=== PATIENT | male | born 1970 | race Caucasian/White ===

== ENCOUNTER → 2017-05-19 09:26 | Outpatient (REF) | payer MEDICARE, MEDICAID, SELFPAY ==
[2017-05-19 14:51] LABS: Alanine Aminotransferase 23 U/L (12-78); Albumin Level 3.7 gm/dL (3.4-5.0); Albumin/Globulin Ratio 1.1 (1.1-1.8); Alkaline Phosphatase 149 U/L (46-116); Anion Gap 10.7 mEq/L (5-15); Aspartate Amino Transferase 14 U/L (15-37); Bilirubin,Total 0.3 mg/dL (0.2-1.0); Blood Urea Nitrogen 13 mg/dL (7-18); Calcium 9.2 mg/dL (8.5-10.1); Carbon Dioxide 31 mmol/L (21.0-32.0); Chloride 101 mmol/L (98-107); Creatinine,Serum 0.91 mg/dL (0.70-1.30); Estimated Glomerular Filt Rate 90 ml/min (>60); GFR (African American) 109 ML/MIN (>60); Globulin 3.4 gm/dl (1.3-3.2); Glucose 254 mg/dL (74-106); Potassium 4.7 mmoL/L (3.5-5.1); Sodium 138 mmol/L (136-145); Total Protein,Serum 7.1 gm/dL (6.4-8.2)
[2017-05-19 14:54] LABS: Amphetamine/Metha Screen,Urine Negative ng/mL (<1000); Barbiturates Screen,Urine Negative ng/mL (<200); Benzodiazepines Screen,Urine Negative ng/mL (200); Cannabinoid Screen,Urine Negative ng/mL (<50); Cocaine Screen,Urine Negative ng/g (<300); Methadone Screen,Urine Negative ng/mL (<300); Opiate Screen,Urine Positive ng/mL (<300); Phencyclidine Screen,Urine Negative ng/mL (<25)
[2017-05-19 14:56] LABS: Basophils # 0.1 K/mm3 (0-0.2); Eosinophils # 0.3 K/mm3 (0.0-0.4); Eosinophils % 3.5 % (0.1-12.0); Hematocrit 49.5 % (42.0-52.0); Hemoglobin 16.7 g/dL (14.1-18.0); Lymphocytes # 2.5 K/mm3 (0.7-4.5); Lymphocytes % 26.9 K/mm3 (10-50); Mean Corpuscular HGB Conc 33.7 g/dL (31.8-35.4); Mean Corpuscular Hemoglobin 28.3 pg (27.0-31.2); Mean Platelet Volume 8.5 fl (7.4-10.4); Monocytes # 0.6 K/mm3 (0.1-1.0); Monocytes % 6.1 % (1.7-9.3); Neutrophils # 5.9 K/mm3 (1.8-7.8); Neutrophils % 62.6 % (37.0-80.0); Platelet Count 257 K/mm3 (142-424); Red Blood Count 5.89 M/mm3 (4.60-6.20); Red Cell Distribution Width 14.8 % (11.5-17.5); White Blood Count 9.4 K/mm3 (4.8-10.8)
[2017-05-19 17:00] LABS: Hemoglobin A1C 7.9 % (0.0-7.0)
== END ==
LOC: LAB 09:26
PROVIDERS: Visit Provider Emergency Medicine
DX: Z79.899 Other long term (current) drug therapy (principal); M51.36 Other intervertebral disc degeneration, lumbar region
CPT/HCPCS: 80053; 80305; 83036; 85025

== ENCOUNTER → 2017-06-16 13:23 | Outpatient (CLI) | payer MEDICARE, MEDICAID, SELFPAY ==
[2017-06-16 19:25] LABS: Amphetamine/Metha Screen,Urine Negative ng/mL (<1000); Barbiturates Screen,Urine Negative ng/mL (<200); Benzodiazepines Screen,Urine Negative ng/mL (200); Cannabinoid Screen,Urine Negative ng/mL (<50); Cocaine Screen,Urine Negative ng/g (<300); Methadone Screen,Urine Negative ng/mL (<300); Opiate Screen,Urine Positive ng/mL (<300); Phencyclidine Screen,Urine Negative ng/mL (<25)
== END ==
PROVIDERS: Visit Provider Emergency Medicine
DX: Z79.899 Other long term (current) drug therapy (principal)
CPT/HCPCS: 80305

== ENCOUNTER → 2017-09-11 13:42 | Outpatient (CLI) | payer MEDICARE, MEDICAID, SELFPAY ==
--- NOTE | 2017-09-11 13:49 | XR_ITS ---
XR shoulder RT min 2V HISTORY: ITS.REASON: right shoulder pain ORDERING PHYSICIAN: Yaw Frazier MD PATIENT AGE: 47 years FINDINGS: There are moderate hypertrophic changes of the acromioclavicular joint with bone spurs projecting ventrally superior at the AC joint. Minimal osteoarthritic changes are present at the glenohumeral joint. No fracture or dislocation. No significant subacromial stenosis. IMPRESSION: Acromioclavicular arthropathy and mild glenohumeral arthropathy
== END ==
PROVIDERS: PCP Emergency Medicine; Visit Provider Orthopaedic Surgery
DX: M25.511 Pain in right shoulder (principal)
CPT/HCPCS: 73030

== ENCOUNTER 2017-09-20 08:29 | Outpatient (RCR) | payer MEDICARE, MEDICAID, SELFPAY | END 2017-09-20 08:30 | disposition home or self-care (01) | LOC: PT 08:29 | PROVIDERS: Family Provider Emergency Medicine; PCP Emergency Medicine; Visit Provider Orthopaedic Surgery | DX: M75.41 Impingement syndrome of right shoulder (principal) | CPT/HCPCS: 97163 ==

== ENCOUNTER → 2017-09-26 19:59 | Outpatient (CLI) | payer MEDICARE, MEDICAID, SELFPAY | PROVIDERS: PCP Emergency Medicine; Visit Provider Emergency Medicine | DX: G47.30 Sleep apnea, unspecified (principal); R40.0 Somnolence; I10 Essential (primary) hypertension; E66.9 Obesity, unspecified; R06.83 Snoring; G47.00 Insomnia, unspecified | CPT/HCPCS: 95810 ==

== ENCOUNTER → 2018-08-07 14:26 | Outpatient (CLI) | payer MEDICARE, MEDICAID, SELFPAY ==
[2018-08-07 15:08] LABS: Basophils # 0.1 K/mm3 (0-0.2); Basophils % 0.6 % (0.1-2.0); Eosinophils # 0.2 K/mm3 (0.0-0.4); Eosinophils % 1.6 % (0.1-12.0); Lymphocytes # 2.2 K/mm3 (0.7-4.5); Lymphocytes % 21.5 % (10-50); Mean Corpuscular HGB Conc 34.3 g/dL (31.8-35.4); Mean Corpuscular Hemoglobin 28.4 pg (27.0-31.2); Mean Platelet Volume 8.6 fl (7.4-10.4); Monocytes # 0.5 K/mm3 (0.1-1.0); Monocytes % 5.3 % (1.7-9.3); Neutrophils # 7.1 K/mm3 (1.8-7.8); Platelet Count 246 K/mm3 (142-424); Red Blood Count 6.51 M/mm3 (4.60-6.20); Red Cell Distribution Width 13.5 % (11.5-17.5)
[2018-08-07 15:31] LABS: Hemoglobin 18.4 g/dL (14.1-18.0)
[2018-08-07 16:02] LABS: Alanine Aminotransferase 20 U/L (12-78); Albumin Level 3.7 gm/dL (3.4-5.0); Albumin/Globulin Ratio 1.1 (1.1-1.8); Alkaline Phosphatase 129 U/L (46-116); Anion Gap 13.2 mEq/L (5-15); Aspartate Amino Transferase 10 U/L (15-37); Bilirubin,Total 0.6 mg/dL (0.2-1.0); Blood Urea Nitrogen 10 mg/dL (7-18); Carbon Dioxide 27 mmol/L (21.0-32.0); Chloride 100 mmol/L (98-107); Chol/HDL Ratio 5.3 (1-3.5); Cholesterol 185 mg/dL (140-200); Creatinine,Serum 0.91 mg/dL (0.70-1.30); Estimated Glomerular Filt Rate 89 ml/min (>60); GFR (African American) 108 ML/MIN (>60); Globulin 3.4 gm/dl (1.3-3.2); Glucose 319 mg/dL (74-106); HDL Cholesterol 35 mg/dL (27-67); LDL Cholesterol 110 mg/dL (0-130); Potassium 4.2 mmoL/L (3.5-5.1); Sodium 136 mmol/L (136-145); T4 (Thyroxine) 7.2 ug/dl (4.7-13.3); Thyroid Stimulating Hormone 3.13 uIU/ml (0.358-3.740); Total Protein,Serum 7.1 gm/dL (6.4-8.2); Triglycerides 202 mg/dL (30-200); VLDL Cholesterol 40 mg/dL (0-40)
[2018-08-09 09:49] LABS: Vitamin D 25 Hydroxy 13.8 ng/mL (30.0-100.0)
[2018-08-09 10:16] LABS: Creatinine, Urine 87.7 mg/dL (Not Estab.)
[2018-08-10 18:28] LABS: Microalbumin, Urine 872.8 ug/mL (Not Estab.)
== END ==
PROVIDERS: Visit Provider Nurse Practitioner Family
DX: E11.9 Type 2 diabetes mellitus without complications (principal); E78.5 Hyperlipidemia, unspecified; J40 Bronchitis, not specified as acute or chronic; Z79.4 Long term (current) use of insulin; Z79.84 Long term (current) use of oral hypoglycemic drugs
CPT/HCPCS: 80053; 80061; 82043; 82570; 82652; 83036; 84436; 84443; 85025

== ENCOUNTER → 2018-08-31 12:44 | Outpatient (CLI) | payer MEDICARE, SELFPAY ==
[2018-08-31 12:54] LABS: Microscopic, Urine URINE MICROSCOPIC (MICROSCOPIC)
[2018-08-31 13:14] LABS: Appearance,Urine CLEAR (Clear); Bilirubin,Urine Negative (Negative); Blood, Urine Negative (Negative); Color,Urine YELLOW (Yellow); Glucose,Urine (UA) 3+ (Negative); Ketones,Urine Negative (Negative); Leukocyte Esterase,Urine Negative (Negative); Nitrate,Urine Negative (Negative); Protein,Urine 2+ (Negative)
[2018-08-31 13:28] LABS: Bacteria,Urine Trace /lpf; Squamous Epithelial Cell,Urine Occasional #/hpf (0-5); WBC,Urine Occasional #/hpf (0-3)
[2018-09-04 06:07] LABS: Erythropoietin 12.6 mIU/mL (2.6-18.5)
== END ==
PROVIDERS: Visit Provider Internal Medicine Medical Oncology
DX: D75.1 Secondary polycythemia (principal)
CPT/HCPCS: 36415; 81001; 81270; 82668

== ENCOUNTER → 2018-10-29 10:13 | Outpatient (CLI) | payer MEDICARE, MEDICAID, SELFPAY ==
[2018-10-29 10:20] LABS: Microscopic, Urine URINE MICROSCOPIC (MICROSCOPIC)
[2018-10-29 10:40] LABS: Basophils # 0.1 K/mm3 (0-0.2); Basophils % 0.6 % (0.1-2.0); Eosinophils # 0.2 K/mm3 (0.0-0.4); Eosinophils % 1.7 % (0.1-12.0); Hematocrit 49.7 % (42.0-52.0); Hemoglobin 16.1 g/dL (14.1-18.0); Lymphocytes # 2.3 K/mm3 (0.7-4.5); Lymphocytes % 23.9 % (10-50); Mean Corpuscular HGB Conc 32.4 g/dL (31.8-35.4); Mean Corpuscular Volume 86.4 fl (80-94); Mean Platelet Volume 7.4 fl (7.4-10.4); Monocytes # 0.5 K/mm3 (0.1-1.0); Monocytes % 5.2 % (1.7-9.3); Neutrophils # 6.5 K/mm3 (1.8-7.8); Neutrophils % 68.6 % (37.0-80.0); Platelet Count 252 K/mm3 (142-424); Red Blood Count 5.75 M/mm3 (4.60-6.20); Red Cell Distribution Width 14.1 % (11.5-17.5); White Blood Count 9.4 K/mm3 (4.8-10.8)
[2018-10-29 10:45] LABS: Appearance,Urine CLEAR (Clear); Bilirubin,Urine Negative (Negative); Blood, Urine Negative (Negative); Color,Urine YELLOW (Yellow); Glucose,Urine (UA) 3+ (Negative); Ketones,Urine Negative (Negative); Leukocyte Esterase,Urine Negative (Negative); Nitrate,Urine Negative (Negative); Protein,Urine 2+ (Negative); Specific Gravity, Urine 1.025 (1.005-1.030)
[2018-10-29 11:14] LABS: Bacteria,Urine Trace /lpf; Squamous Epithelial Cell,Urine Occasional #/hpf (0-5); WBC,Urine Occasional #/hpf (0-3)
[2018-10-29 11:43] LABS: Creatinine,Urine Random 97 mg/dL (20-320); Total Protein,Urine Random 102.9 mg/dL (0.0-11.9)
[2018-10-29 13:10] LABS: Albumin Level 3.4 gm/dL (3.4-5.0); Blood Urea Nitrogen 10 mg/dL (7-18); Calcium 8.3 mg/dL (8.5-10.1); Carbon Dioxide 27 mmol/L (21.0-32.0); Chloride 102 mmol/L (98-107); Creatinine,Serum 0.97 mg/dL (0.70-1.30); Estimated Glomerular Filt Rate 83 ml/min (>60); GFR (African American) 100 ML/MIN (>60); Glucose 280 mg/dL (74-106); Phosphorous 3.5 mg/dL (2.4-4.9); Sodium 140 mmol/L (136-145)
[2018-10-30 16:27] LABS: Parathyroid Hormone Intact 50 pg/mL (15-65)
[2018-10-30 16:28] LABS: Vitamin D 25 Hydroxy 35.2 ng/mL (30.0-100.0)
== END ==
PROVIDERS: Visit Provider Internal Medicine Nephrology
DX: R80.9 Proteinuria, unspecified (principal)
CPT/HCPCS: 36415; 80069; 81001; 82570; 82652; 83970; 84155; 85025

== ENCOUNTER → 2018-11-05 13:54 | Outpatient (POV) | payer MEDICARE, SELFPAY | PROVIDERS: Visit Provider Internal Medicine Nephrology | DX: Z00.00 Encounter for general adult medical examination without abnormal findings (principal) ==

== ENCOUNTER 2021-09-26 22:01 | Inpatient (IN) | payer MEDICARE, MEDICAID, SELFPAY ==
--- NOTE | 2021-09-26 | IR_ITS ---
APPROVED REPORT Patient Location: [facility] Taping Machine Offbearer: URMILA Avery RT (R) PROCEDURES Left heart catheterization Left ventriculogram Selective coronary angiogram Mechanical thrombectomy followed by drug-eluting stent deployment to the proximal mid and distal dominant right coronary artery in a contiguous manner INDICATION Acute ST elevation inferior lateral posterior right ventricular myocardial infarction, Coronary artery disease Informed consent was obtained prior to the procedure. COMPLICATIONS NONE Estimated Blood Loss: LESS THAN 10 ML TECHNIQUE One percent lidocaine used to anesthetize the right anterior aspect of the wrist. The right radial artery was accessed via the Seldinger technique. A 6 Czech sheath was placed in the right radial artery. 2.5 mg of verapamil, 800 mcg of nitroglycerin, 1mg Lidocaine and 5000 U Heparin were given through the arterial sheath. The papa catheter was also used to perform selective coronary angiogram. Therapeutic heparin had already been administered and ACT was therapeutic. The guide catheter was left in the dominant right coronary artery and a Choice PT wire was used to traverse the occlusion. A penumbra mechanical aspiration catheter was placed and a large amount of thrombus was removed from the proximal and distal segment restoring JOSE ELIAS-3 flow from JOSE ELIAS 0 flow. Following this a 5 mm x 30 mm resolute Ez stent was placed in the proximal segment and deployed at 20 pauline. An additional 4 mm x 38 mm resolute Pickford stent was placed distal to the first stent yet still overlapping it and deployed at 24 pauline. An additional 5 mm x 26 mm resolute Ez stent was placed distal to the 38 mm stent yet still overlapping it and deployed at 24 pauline. The balloon was brought back and deployed at 24 and 25 pauline up and down the right coronary artery within all the stents. The 5 mm x 26 mm balloon was used to mesh the stents as well as post dilate. Patient did experience an accelerated idioventricular rhythm following penumbra mechanical aspiration. At the end of the procedure 800 mcg of intracoronary nitroglycerin was administered and JOSE ELIAS-3 flow was restored while starting with JOSE ELIAS 0 flow. The guide catheter was then placed in the left main artery where left coronary angiography was performed and then left ventriculogram and left heart catheterization. At the end of the procedure the apparatus was removed the sheath was removed and hemostasis was achieved using TR banding patient was transferred to the postop putting in stable condition ANGIOGRAPHIC RESULTS The left main artery Normal The left anterior descending artery Has mild proximal and mid vessel 20% stenoses. This does give rise to a moderate sized ramus intermedius which has proximal 30 to 40% stenosis The circumflex artery Nondominant with diffuse proximal and mid vessel 20 to 30% stenoses The right coronary artery Is a massively large dominant vessel initially proximally occluded. Following revascularization the vessel had diffuse mild to moderate vascular ectasia with wide patency of the stents in the proximal mid and distal segment in a contiguous manner.. Distally the posterior lateral and posterior descending artery had diffuse 20 and 30% stenoses The LEONARD ventriculogram reveals Slight Santos dilated with inferior wall hypokinesis estimate ejection fraction is 40 to 45% The left ventricular end-diastolic pressure 20 to 25 mmHg IMPRESSION Massively large dominant right coronary artery which was proximally thrombosed with successful stenting of the proximal mid and distal dominant right coronary artery with 3 contiguous drug-eluting stents Regional wall motion abnormality with slightly reduced ej
[2021-09-26 22:17] VITALS: BP 150/102; PULSE 78; RESP 18; TEMP 37.1; O2SAT 96; BMI 43.0
--- NOTE | 2021-09-26 22:24 | XR_ITS ---
PROCEDURE INFORMATION: Exam: XR Chest Exam date and time: 09/26/2021 10:34 PM Age: 51 years old Clinical indication: Sternal or substernal pain; Additional info: Chest pain stemi alert PT going to heart cath TECHNIQUE: Imaging protocol: XR of the chest. Views: 1 view. COMPARISON: CR CXR2V XR chest 2V 05/04/2018 11:18 PM FINDINGS: Lungs: Interstitial airspace disease in bilateral lower lung zones findings concerning for moderate pneumonia. Pleural spaces: Unremarkable. No pleural effusion. No pneumothorax. Heart/Mediastinum: Unremarkable. No cardiomegaly. Bones/joints: Unremarkable. IMPRESSION: Moderate interstitial pneumonia in the lower lobes.
--- NOTE | 2021-09-26 22:28 | ECG_ITS ---
APPROVED REPORT Exam: Resting ECG HR:73 bpm ECG Measurements Heart Rate 73 AXES MO 179 P 55 QRSd 95 QRS 114 QT 396 T 85 QTc 422 Conclusion SINUS RHYTHM Inferior ST elevation with reciprocal changes... acute VA ABNORMAL ECG UNCONFIRMED REPORT Electronically signed by : Paresh Calero MD 09/27/2021 09:39:53
[2021-09-26 22:31] LABS: Red Blood Count 5.85 M/mm3 (4.60-6.20); White Blood Count 13.7 K/mm3 (4.8-10.8)
--- NOTE | 2021-09-26 22:31 | HMH.EDCP ---
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 use: unspecified long wall mining machine tender insulin use status Diabetes mellitus complication status: with other specified complication Qualified Code(s): E11.69 - Type 2 diabetes mellitus with other specified complication Obesity Qualifiers: Obesity type: due to excess calories Obesity classification: adult class 3 (BMI >= 40) Serious obesity comorbidity presence: with serious comorbidity Body mass index: BMI 40.0-44.9 Qualified Code(s): E66.01 - Morbid (severe) obesity due to excess calories; Z68.41 - Body mass index [BMI] 40.0-44.9, adult Disposition: Admitted As Inpatient Condition on Discharge: Good Referrals: Andre Wiggins MD [Primary Care Provider] - Stephen Olmstead MD [Staff Physician] - - Critical Care Critical Care Time: No Attestation: On 09/26/21, the high probability of a clinically significant, sudden or life threatening deterioration of the following system(s) required my full and direct attention, intervention and personal management. The time I documented below is in addition to time spent performing reported procedures but includes the following listed in this critical care notation. Medical Decision Making - Medical Records Medical records reviewed: Yes: I reviewed the patient's medical records. - Galindo Inquiry Pt receiving controlled substance: No Vital Signs: 09/26/21 22:17 Temperature 98.7 F Temperature Source Oral Pulse Rate [Apical] 78 Respiratory Rate 18 Blood Pressure [Right Arm] 150/102 H Blood Pressure Mean [Right Arm] 118 Blood Pressure Source [Right Arm] Automatic Cuff Blood Pressure Position [Right Arm] Sitting 02 Sat by Pulse Oximetry 96 Oxygen Delivery Method Room Air - Lab Data Lab results reviewed: Yes: I reviewed the patient's lab results. Lab Results 09/26/21 22:15: WBC 13.7 H, RBC 5.85, Hgb 17.7, Hct 51.1, MCV 87.3, MCH 30.3, MCHC 34.7, RDW 14.9, Plt Count 295, MPV 8.0, Neut % (Auto) 64.6, Lymph % (Auto) 24.5, Sumner % (Auto) 6.6, Eos % (Auto) 2.7, Baso % (Auto) 1.7, Neut # (Auto) 8.8 H, Lymph # (Auto) 3.4, Sumner # (Auto) 0.9, Eos # (Auto) 0.4, Baso # (Auto) 0.2, ESR 5 09/26/21 22:15: Sodium 136, Potassium 4.1, Chloride 101, Carbon Dioxide 24, Anion Gap 15.1 H, BUN 13, Creatinine 1.00, Estimated Creat Clear 91, Estimated GFR 79, Est GFR ( Amer) 96, Glucose 198 H, Calcium 9.6, Total Bilirubin 0.2, AST 30, ALT 27, Alkaline Phosphatase 111, Troponin I 0.03, C-Reactive Protein 3.0, Total Protein 7.5, Albumin 4.2, Globulin 3.3 H, Albumin/Globulin Ratio 1.3, Amylase 58, Lipase 52, Procalcitonin 0.086 09/26/21 22:15: Sodium 136, Potassium 4.1, Chloride 102, Carbon Dioxide 24, Anion Gap 14.1, BUN 12, Creatinine 1.00, Estimated Creat Clear 91, Estimated GFR 79, Est GFR ( Amer) 96, Glucose 209 H, Calcium 9.8 09/26/21 22:15: NT-Pro-B Natriuret Pep 38.6 09/26/21 22:30: SARS-CoV-2 (PCR) Not detected, Influenza A Untype (PCR) Not detected, Influenza Type B (PCR) Not detected 09/26/21 22:36: Urine Opiates Screen Negative, Urine Methadone Screen Negative, Ur Barbituates Screen Negative, Ur Phencyclidine Scrn Negative, Ur Amphetamines Screen Negative, U Benzodiazepines Scrn Negative, Urine Cocaine Screen Negative, U Marijuana (THC) Screen Negative Result diagrams: 09/26/21 22:15 09/26/21 22:15 Orders (Tests/Meds): ED MEDICATIONS Generic Name Dose Route Start Last Admin Trade Name Freq PRN Reason Stop Dose Admin Diphenhydramine HCl 50 mg 09/26/21 22:49 09/26/21 23:16 Diphenhydramine 50mg/Ml Vial IV 09/26/21 22:50 50 mg ONCE ONE Administration Fentanyl Citrate 25 mcg 09/26/21 22:49 Fentanyl 100mcg/2ml Vial IV 09/27/21 22:49 Q3MINP PRN Moder
[2021-09-26 22:32] LABS: Basophils # 0.2 K/mm3 (0-0.2); Basophils % 1.7 % (0.1-2.0); Eosinophils # 0.4 K/mm3 (0.0-0.4); Eosinophils % 2.7 % (0.1-12.0); Hematocrit 51.1 % (42.0-52.0); Hemoglobin 17.7 g/dL (14.1-18.0); Lymphocytes # 3.4 K/mm3 (0.7-4.5); Lymphocytes % 24.5 % (10-50); Mean Corpuscular HGB Conc 34.7 g/dL (31.8-35.4); Mean Corpuscular Hemoglobin 30.3 pg (27.0-31.2); Mean Corpuscular Volume 87.3 fl (80-94); Monocytes # 0.9 K/mm3 (0.1-1.0); Monocytes % 6.6 % (1.7-9.3); Neutrophils # 8.8 K/mm3 (1.8-7.8); Neutrophils % 64.6 % (37.0-80.0); Platelet Count 295 K/mm3 (142-424); Red Cell Distribution Width 14.9 % (11.5-17.5)
[2021-09-26 22:37] LABS: Alanine Aminotransferase 27 U/L (12-78); Albumin Level 4.2 g/dl (3.5-5.0); Albumin/Globulin Ratio 1.3 (1.1-1.8); Alkaline Phosphatase 111 U/L (38-126); Amylase 58 U/L (30-110); Anion Gap 15.1 mEq/L (5-15); Aspartate Amino Transferase 30 U/L (17-59); Bilirubin,Total 0.2 mg/dl (0.2-1.3); Blood Urea Nitrogen 13 mg/dl (9-20); Calcium 9.6 mg/dl (8.4-10.2); Carbon Dioxide 24 mmol/L (22.0-30.0); Chloride 101 mmol/L (98-107); Creatinine Clearance Estimated 91 mL/min (50-200); Estimated Glomerular Filt Rate 79 ml/min (>60); GFR (African American) 96 ML/MIN (>60); Globulin 3.3 g/dL (1.3-3.2); Glucose 198 mg/dl (74-100); Lipase 52 U/L (23-300); Potassium 4.1 mmoL/L (3.5-5.1); Sodium 136 mmol/L (136-145); Total Protein,Serum 7.5 g/dl (6.3-8.2)
[2021-09-26 22:43] LABS: Coronavirus 19, PCR Not Detected (NotDetected); Influenza A, PCR Not Detected (NotDetected); Influenza B, PCR Not Detected (NotDetected)
[2021-09-26 22:45] LABS: Chloride 102 mmol/L (98-107); Potassium 4.1 mmoL/L (3.5-5.1); Sodium 136 mmol/L (136-145)
[2021-09-26 22:48] LABS: Anion Gap 14.1 mEq/L (5-15); Blood Urea Nitrogen 12 mg/dl (9-20); Carbon Dioxide 24 mmol/L (22.0-30.0); Creatinine Clearance Estimated 91 mL/min (50-200); Estimated Glomerular Filt Rate 79 ml/min (>60); GFR (African American) 96 ML/MIN (>60)
[2021-09-26 22:49] LABS: Calcium 9.8 mg/dl (8.4-10.2); Glucose 209 mg/dl (74-100)
[2021-09-26 22:53] LABS: Erythrocyte Sedimentation Rate 5 mm/hr (0-15); Troponin I 0.03 ng/ml (0.00-0.034)
[2021-09-26 22:54] LABS: Barbiturates Screen,Urine Negative ng/ml (<200)
[2021-09-26 22:55] LABS: Amphetamine/Metha Screen,Urine Negative ng/ml (<1000); Benzodiazepines Screen,Urine Negative ng/ml (<200)
[2021-09-26 22:56] LABS: Cannabinoid Screen,Urine Negative ng/ml (<50)
[2021-09-26 22:57] LABS: Cocaine Screen,Urine Negative ng/ml (<300); Methadone Screen,Urine Negative ng/ml (<300)
[2021-09-26 22:57] LABS: Procalcitonin 0.086 ng/mL (0.0-2.0)
[2021-09-26 22:58] LABS: Phencyclidine Screen,Urine Negative ng/ml (<25)
[2021-09-26 22:59] LABS: Opiate Screen,Urine Negative ng/ml (<300)
[2021-09-26 23:08] LABS: NT Pro Brain Natriuretic Pep. 38.6 pg/mL (0-125)
[2021-09-26 23:26] VITALS: BP 149/91; PULSE 71; RESP 18; TEMP 37.1; O2SAT 96
[2021-09-27] VITALS (26 sets, daily range): BP systolic 102–150; BP diastolic 53–88; PULSE 62–95; RESP 17–33; TEMP 36.5–37.1; O2SAT 91–99; BMI 42.5
[2021-09-27 00:08] LABS: CATHL Activated Clotting Time 244 SEC (74-125)
[2021-09-27 00:09] LABS: CATHL Activated Clotting Time 252 SEC (74-125)
--- NOTE | 2021-09-27 00:28 | PC.NURSE ---
patient up to floor via stretcher @ this time from cathlab.
[2021-09-27 05:37] LABS: POC Glucose,Bedside 145 (70-110)
[2021-09-27 06:02] LABS: Basophils # 0.1 K/mm3 (0-0.2); Basophils % 1.2 % (0.1-2.0); Eosinophils # 0.1 K/mm3 (0.0-0.4); Eosinophils % 1.1 % (0.1-12.0); Hematocrit 49.3 % (42.0-52.0); Hemoglobin 16.8 g/dL (14.1-18.0); Lymphocytes # 2.6 K/mm3 (0.7-4.5); Lymphocytes % 23.1 % (10-50); Mean Corpuscular Hemoglobin 29.7 pg (27.0-31.2); Mean Corpuscular Volume 87.4 fl (80-94); Mean Platelet Volume 7.8 fl (7.4-10.4); Monocytes # 0.8 K/mm3 (0.1-1.0); Neutrophils # 7.7 K/mm3 (1.8-7.8); Neutrophils % 67.5 % (37.0-80.0); Platelet Count 271 K/mm3 (142-424); Red Blood Count 5.64 M/mm3 (4.60-6.20); Red Cell Distribution Width 14.9 % (11.5-17.5); White Blood Count 11.4 K/mm3 (4.8-10.8)
[2021-09-27 06:12] LABS: Alanine Aminotransferase 24 U/L (12-78); Albumin Level 3.9 g/dl (3.5-5.0); Albumin/Globulin Ratio 1.4 (1.1-1.8); Alkaline Phosphatase 95 U/L (38-126); Anion Gap 10.1 mEq/L (5-15); Aspartate Amino Transferase 51 U/L (17-59); Bilirubin,Total 0.4 mg/dl (0.2-1.3); Blood Urea Nitrogen 13 mg/dl (9-20); Calcium 9.3 mg/dl (8.4-10.2); Carbon Dioxide 27 mmol/L (22.0-30.0); Chloride 103 mmol/L (98-107); Chol/HDL Ratio 4.3 (1-3.5); Cholesterol 102 mg/dl (140-200); Creatinine Clearance Estimated 91 mL/min (50-200); Estimated Glomerular Filt Rate 79 ml/min (>60); GFR (African American) 96 ML/MIN (>60); Globulin 2.8 g/dL (1.3-3.2); Glucose 158 mg/dl (74-100); HDL Cholesterol 24 mg/dl (40-60); Magnesium 2.1 mg/dl (1.6-2.3); Potassium 4.1 mmoL/L (3.5-5.1); Sodium 136 mmol/L (136-145); Total Protein,Serum 6.7 g/dl (6.3-8.2); Triglycerides 249 mg/dl (30-150); VLDL Cholesterol 50 mg/dL (0-40)
[2021-09-27 06:23] LABS: Direct LDL Cholesterol 49.72 mg/dL (100-129)
--- NOTE | 2021-09-27 07:17 | XR_ITS ---
PROCEDURE INFORMATION: Exam: XR Chest Exam date and time: 09/27/2021 7:29 AM Age: 51 years old Clinical indication: Shortness of breath; Additional info: SOA TECHNIQUE: Imaging protocol: XR of the chest. Views: 1 view. COMPARISON: CR XR CHEST PORTABLE 09/26/2021 10:34 PM FINDINGS: Lungs: Hyperinflation, interstitial prominence, and left basilar airspace disease. Pleural spaces: No pleural effusion. Heart/Mediastinum: No cardiomegaly. Bones/joints: Degenerative change. IMPRESSION: Hyperinflation, interstitial prominence, and left basilar airspace disease.
--- NOTE | 2021-09-27 08:01 | HMH.PHAVTE ---
[facility] Pharmacy VTE Monitoring - Patient Demographics Admission date: 09/26/21 Report Date: 09/27/21 Time: 08:01 Allergies/Adverse Reactions: Patient Allergies No Known Allergies Allergy (Verified 09/20/18 10:27) Height: 1.78 m Weight: 134.808 kg Patient Problems: Current Active Problems ST elevation myocardial infarction (STEMI) (Acute) Obesity (Acute) Tobacco abuse (Chronic) Type 2 diabetes mellitus (Chronic) - VTE Risk Labs: VTE Related Lab Results Hgb 16.8 g/dL (14.1-18.0) 09/27/21 05:25 Hct 49.3 % (42.0-52.0) 09/27/21 05:25 Plt Count 271 K/mm3 (142-424) 09/27/21 05:25 BUN 13 mg/dl (9-20) 09/27/21 05:25 Creatinine 1.00 mg/dl (0.66-1.25) 09/27/21 05:25 Estimated Creat Clear 91 mL/min (50-200) 09/27/21 05:25 VTE Risk Level: Moderate Risk - Prophylaxis VTE Prophylaxis Ordered?: Yes Types of VTE Prophylaxis: TEDS Knee High Location of Applied Device: Bilateral Lower Extremeties
--- NOTE | 2021-09-27 08:59 | HMH.HP ---
*Admission Date: 09/26/21 *Chief complaint: Cough/chest pain *History of present illness: 51-year-old white male with multiple risk factors for cardiac disease including diabetes, hyperlipidemia, heavy smoking history as well as history of multidrug abuse, who came to the emergency department with cough, congestion and some anterior chest pain that was new onset over the past several hours. In the ER found to have STEMI with ST elevation, Belting Inspector was activated and patient was taken to Belting Inspector. Angiographic report from cardiology noted below: ANGIOGRAPHIC RESULTS The left main artery Normal The left anterior descending artery Has mild proximal and mid vessel 20% stenoses. This does give rise to a moderate sized ramus intermedius which has proximal 30 to 40% stenosis The circumflex artery Nondominant with diffuse proximal and mid vessel 20 to 30% stenoses The right coronary artery Is a massively large dominant vessel initially proximally occluded. Following revascularization the vessel had diffuse mild to moderate vascular ectasia with wide patency of the stents in the proximal mid and distal segment in a contiguous manner.. Distally the posterior lateral and posterior descending artery had diffuse 20 and 30% stenoses The LEONARD ventriculogram reveals Slight Santos dilated with inferior wall hypokinesis estimate ejection fraction is 40 to 45% The left ventricular end-diastolic pressure 20 to 25 mmHg IMPRESSION Massively large dominant right coronary artery which was proximally thrombosed with successful stenting of the proximal mid and distal dominant right coronary artery with 3 contiguous drug-eluting stents Regional wall motion abnormality with slightly reduced ejection fraction Elevated LVEDP Massively large vessels with diffuse mild vascular ectasia throughout the dominant right coronary artery PLAN 1. Brilinta 90 twice daily plus aspirin 81 mg daily 2. Because of the massively large size of the right coronary artery accompanied by the vascular ectasia and large thrombus burden, I would like to start patient on Integrilin and continue the drip for the next 18 to 24 hours 3. Start RACHANA inhibitor's and beta-blockers once hemodynamically stable 4. Avoidance of tobacco products 5. Risk factor modification 6. Cardiac rehabilitation 7. LDL less than 55 to be achieved with high intensity statin 8. Cardiac monitoring for the next 48 hours and then reassess with echocardiogram Monday [facility] History I have reviewed the patient's past medical history: Yes Medical History: Reports:: Diabetes Mellitus Type 2, Hyperlipidemia, Hypertension Denies:: Diabetes Mellitus Type 1 *Have you ever received a pneumonia vaccine?: No *Have you received a flu vaccine this season?: No Other Surgeries: Yes: No Previous Surgery Amputation: No Fractures: No - *Social History Smoking Status: Current every day smoker Tobacco Type: cigarettes # Packs/Day (cigarettes): 1 Alcohol Intake: never Substance Use Type: denies use *Occupational Status:: unemployed Housing: house Household Members: family *Travel in the last 8 weeks: None Family Hx:: Diabetes, Heart Attack, Hyperlipidemia, Hypertension, Thyroid Disorder Review of Systems - Review of Systems Review of systems:: pertinent systems reviewed and negative unless documented below Patient feels better, notes that his chest pain has resolved. Notes he has a mild cough and occasionally feels like he is got little bit of a wheeze when he breathes out. Otherwise feels good and 12 point review of systems negative - *Neurologic Denies headache(s), Denies seizure-like activity Meds Home Medications Medication Instructions Recorded Confirmed Type citalopram 20 mg tablet 20 mg PO QDAY #90 tab 08/07/18 09/26/21 Rx Amlodipine Besylate [Amlodipine 10 mg PO DAILY 09/26/21 09/26/21 History 10mg Tab] Atorvastatin Calcium [Lipitor 40mg 40 mg PO HS 09/26/21 09/26/21 History Tab
--- NOTE | 2021-09-27 09:15 | PC.NURSE ---
pt sitting in chair, not wearing O2. O2 sat 94%. He does not wear O2 at home.
--- NOTE | 2021-09-27 12:00 | HMH.PHAINT ---
MEDICATION RECONCILIATION COMPLETED ON PATIENT USING EXTERNAL FILL HISTORY FROM PHARMACY. -LORENA VAZQUEZ, ATAD
[2021-09-27 12:47] LABS: POC Glucose,Bedside 206 (70-110)
--- NOTE | 2021-09-27 18:23 | PC.NURSE ---
Integrilin gtt turned OFF at this time
[2021-09-28] VITALS (12 sets, daily range): BP systolic 103–146; BP diastolic 64–122; PULSE 60–90; RESP 16–29; TEMP 36.2–36.9; O2SAT 91–98; BMI 42.5
[2021-09-28 06:49] LABS: Basophils # 0.2 K/mm3 (0-0.2); Basophils % 1.3 % (0.1-2.0); Eosinophils # 0.2 K/mm3 (0.0-0.4); Eosinophils % 1.5 % (0.1-12.0); Hematocrit 48.2 % (42.0-52.0); Hemoglobin 16.3 g/dL (14.1-18.0); Lymphocytes # 2.2 K/mm3 (0.7-4.5); Lymphocytes % 19.9 % (10-50); Mean Corpuscular HGB Conc 33.9 g/dL (31.8-35.4); Mean Corpuscular Hemoglobin 29.5 pg (27.0-31.2); Mean Corpuscular Volume 87.1 fl (80-94); Mean Platelet Volume 8.1 fl (7.4-10.4); Monocytes # 0.8 K/mm3 (0.1-1.0); Monocytes % 7.2 % (1.7-9.3); Neutrophils # 7.9 K/mm3 (1.8-7.8); Neutrophils % 70.3 % (37.0-80.0); Platelet Count 263 K/mm3 (142-424); Red Blood Count 5.53 M/mm3 (4.60-6.20); Red Cell Distribution Width 14.8 % (11.5-17.5); White Blood Count 11.2 K/mm3 (4.8-10.8)
[2021-09-28 06:55] LABS: Blood Urea Nitrogen 13 mg/dl (9-20); Calcium 8.9 mg/dl (8.4-10.2); Carbon Dioxide 31 mmol/L (22.0-30.0); Chloride 102 mmol/L (98-107); Creatinine Clearance Estimated 101 mL/min (50-200); Estimated Glomerular Filt Rate 89 ml/min (>60); GFR (African American) 108 ML/MIN (>60); Glucose 145 mg/dl (74-100); Sodium 138 mmol/L (136-145)
--- NOTE | 2021-09-28 07:27 | HMH.CNCARD ---
History of Present Illness Consult date: 09/28/21 Requesting physician: Paresh Calero Consult reason: chest pain Chief complaint: Inferior STEMI Additional Medical History:: 1. Disabled due to diabetic neuropathy of the feet and degenerative disc disease 2. Diabetes mellitus, diagnosed 2008 A. Diabetic neuropathy 3. Tobacco use, 1 to 2 packs/day A. Emphysema noted on chest x-ray 4. Hypertension 5. Hyperlipidemia 6. Coronary artery disease A. Inferior ST elevation [place], 09/26/2021 with subsequent left heart catheterization and placement of 3 drug-eluting stents to RCA. ANGIOGRAPHIC RESULTS The left main artery Normal The left anterior descending artery Has mild proximal and mid vessel 20% stenoses. This does give rise to a moderate sized ramus intermedius which has proximal 30 to 40% stenosis The circumflex artery Nondominant with diffuse proximal and mid vessel 20 to 30% stenoses The right coronary artery Is a massively large dominant vessel initially proximally occluded. Following revascularization the vessel had diffuse mild to moderate vascular ectasia with wide patency of the stents in the proximal mid and distal segment in a contiguous manner.. Distally the posterior lateral and posterior descending artery had diffuse 20 and 30% stenoses The LEONARD ventriculogram reveals Slight Santos dilated with inferior wall hypokinesis estimate ejection fraction is 40 to 45% The left ventricular end-diastolic pressure 20 to 25 mmHg IMPRESSION Massively large dominant right coronary artery which was proximally thrombosed with successful stenting of the proximal mid and distal dominant right coronary artery with 3 contiguous drug-eluting stents Regional wall motion abnormality with slightly reduced ejection fraction Elevated LVEDP Massively large vessels with diffuse mild vascular ectasia throughout the dominant right coronary artery PLAN 1. Brilinta 90 twice daily plus aspirin 81 mg daily 2. Because of the massively large size of the right coronary artery accompanied by the vascular ectasia and large thrombus burden, I would like to start patient on Integrilin and continue the drip for the next 18 to 24 hours 3. Start RACHANA inhibitor's and beta-blockers once hemodynamically stable 4. Avoidance of tobacco products 5. Risk factor modification 6. Cardiac rehabilitation 7. LDL less than 55 to be achieved with high intensity statin 8. Cardiac monitoring for the next 48 hours and then reassess with echocardiogram Monday Electronically signed by : Stephen Olmstead MD 09/26/2021 23:48:44 7. Ischemic cardiomyopathy, 09/26/2021 with EF estimated at 40-45% on left heart cath. A. Echocardiogram, 09/28/2021, results pending at this time. History of present illness: 51-year-old white male with multiple medical problems including diabetes, hypertension, hyperlipidemia and long-term tobacco use presented to the emergency department the evening of 09/26/2021 for chest heaviness ( like two elephants sitting on my chest ) associated with a cough but no nausea, vomiting or diarrhea of approximately 1 hours duration. Work-up in the ER revealed inferior ST elevation FL and Dr. Olmstead/cardiac Telemarketing Sales Representative were notified and activated with subsequent cardiac cath and placement of 3 drug-eluting stents to the right coronary artery. He was started on dual antiplatelet therapy with aspirin and Brilinta along with IV Integrilin due to coronary ectasia and large thrombus burden. Patient has done well since admission. He does have a persistent cough which is likely related to airspace disease noted on chest x-ray. He is receiving IV antibiotics. His shortness of breath has resolved and he relates he is now able to take a deep breath. Patient did report an episode of chest pain and like a single elephant sitting on his chest 2 days prior to his ER visit with resolution of the pain and pressure after coughing spell. Long history of tobacco use wit
--- NOTE | 2021-09-28 07:36 | PC.NURSE ---
AM meds given early per Janeth CHAN
--- NOTE | 2021-09-28 07:56 | ECG_ITS ---
APPROVED REPORT Exam: Resting ECG HR:73 bpm ECG Measurements Heart Rate 73 AXES TN 163 P 45 QRSd 85 QRS -8 QT 415 T -68 QTc 441 Conclusion SINUS RHYTHM INDETERMINATE AXIS PATTERN CONSISTENT WITH PULMONARY DISEASE INFERIOR MYOCARDIAL INFARCTION , OF INDETERMINATE AGE [40+ ms Q WAVE AND/OR ST/T ABNORMALITY IN II/aVF] ABNORMAL ECG UNCONFIRMED REPORT Electronically signed by : Paresh Calero MD 09/28/2021 21:12:42
--- NOTE | 2021-09-28 08:00 | CA_ITS ---
APPROVED REPORT EXAM: Comprehensive 2D, Doppler, and color-flow Echocardiogram Cloth Printing Inspector: Airam Haley, NAHOMI, RVS Ht: 5 ft 10 in Wt: 300lbs BSA: 2.48 BP: 000/00 mmHg Indications: CAD, IA, 3 stents 09/26/21, Smoker, DM, Obesity, CP, HLD, HTN 2D Dimensions IVSd 1.54 cm LVEF (Visual) 66.90 % PWd 1.32 cm LA Volume 54.60 mL LVDd 4.32 cm LA Volume Index 22.00 mL/m2 (M/F) 16-34 LVDs 2.73 cm LVOT 2.30 cm (M/F) 1.5-2.5 M-Mode Dimensions LA Diam 5.03 cm (1.9-4.0) Ao Diam 3.83 cm (2.0-3.7) EPSs 0.51 cm TAPSE 2.17 (<1.7) LV Diastology E Decel Time 343.00 (160-240 msec) E/A Ratio 0.85 MED E' 4.60 (< 7 cm/sec) MED A' 8.30 cm/s E'/MED E' Ratio 18.11 (>14) LAT E' 5.00 (<10 cm/sec) LAT A' 12.40 cm/s E/LAT E' Ratio 16.66 (>14) Aortic Valve LVOT Max 117.00 (70-110 cm/s) LVOT VTI 22.25 cm AoV Peak Corey. 146.00 (50-130 cm/s) AO Peak GR. 8.50 mmHg AO Mean GR. 4.20 (<5 mmHg) AO VTI 22.98 (18-25 cm) JAZMYNE (VTI) 4.02 (2.5-4.5 cm2) Mitral Valve MV A Velocity 98.00 (40-130 cm/s) E/A Ratio 0.85 MV Decel. Time 343.00 (160-240 ms) Pulmonary Valve PV Peak Velocity 106.00 (50-150 cm/s) Left Ventricle Atrium is mildly enlarged, left ventricle is normal size, mild concentric left ventricular hypertrophy, estimated ejection fraction 55% with no regional wall motion abnormality, grade 1 diastolic dysfunction seen without tissue Doppler evidence of raise left atrial pressure. Right Ventricle Right atrium and right ventricle are normal size and contractility. Aortic Valve Aortic valve is minimally thickened and fibrosed, there is no aortic stenosis or aortic insufficiency. Mitral Valve Mitral valve grossly normal, there is trace mitral regurgitation. Tricuspid Valve Tricuspid valve is grossly normal, there is trace tricuspid regurgitation, tricuspid regurgitation jet velocity is inadequate for calculation of the right ventricular systolic pressure. Pulmonic Valve Pulmonic valve is poorly visualized. Great Vessels Aortic root is normal size. Inferior vena cava normal size with normal inspiratory collapse. Pericardium No significant pericardial effusion noted. Conclusion 1. Mildly enlarged left atrium, normal left ventricular size, mild concentric left ventricular hypertrophy, estimated ejection fraction 55% with no regional wall motion abnormality, grade 1 diastolic dysfunction seen without tissue Doppler evidence of raise left atrial pressure. 2. Trace mitral and tricuspid regurgitation. 3. No significant pericardial effusion noted. 4. Inferior vena cava normal size with normal inspiratory collapse. Electronically signed by : Ashu Mcfadden MD 09/28/2021 21:13:10
--- NOTE | 2021-09-28 08:31 | PC.NURSE ---
transferred patient out of stepdown to [facility]. notified admissions
--- NOTE | 2021-09-28 08:37 | HMH.DCSUM ---
General - General Admission date:: 09/27/21 Discharge date: 09/28/21 HPI HPI: 51-year-old white male with multiple risk factors for cardiac disease including diabetes, hyperlipidemia, heavy smoking history as well as history of multidrug abuse, who came to the emergency department with cough, congestion and some anterior chest pain that was new onset over the past several hours. In the ER found to have STEMI with ST elevation, Department Specialist was activated and patient was taken to Department Specialist. Angiographic report from cardiology noted below: ANGIOGRAPHIC RESULTS The left main artery Normal The left anterior descending artery Has mild proximal and mid vessel 20% stenoses. This does give rise to a moderate sized ramus intermedius which has proximal 30 to 40% stenosis The circumflex artery Nondominant with diffuse proximal and mid vessel 20 to 30% stenoses The right coronary artery Is a massively large dominant vessel initially proximally occluded. Following revascularization the vessel had diffuse mild to moderate vascular ectasia with wide patency of the stents in the proximal mid and distal segment in a contiguous manner.. Distally the posterior lateral and posterior descending artery had diffuse 20 and 30% stenoses The LEONARD ventriculogram reveals Slight Santos dilated with inferior wall hypokinesis estimate ejection fraction is 40 to 45% The left ventricular end-diastolic pressure 20 to 25 mmHg IMPRESSION Massively large dominant right coronary artery which was proximally thrombosed with successful stenting of the proximal mid and distal dominant right coronary artery with 3 contiguous drug-eluting stents Regional wall motion abnormality with slightly reduced ejection fraction Elevated LVEDP Massively large vessels with diffuse mild vascular ectasia throughout the dominant right coronary artery PLAN 1. Brilinta 90 twice daily plus aspirin 81 mg daily 2. Because of the massively large size of the right coronary artery accompanied by the vascular ectasia and large thrombus burden, I would like to start patient on Integrilin and continue the drip for the next 18 to 24 hours 3. Start RACHANA inhibitor's and beta-blockers once hemodynamically stable 4. Avoidance of tobacco products 5. Risk factor modification 6. Cardiac rehabilitation 7. LDL less than 55 to be achieved with high intensity statin 8. Cardiac monitoring for the next 48 hours and then reassess with echocardiogram Monday morning Objective Vital signs: Temp Pulse Resp BP Pulse Ox 98.7 F 89 24 146/122 H 95 09/27/21 20:00 09/28/21 06:30 09/28/21 06:00 09/28/21 06:00 09/28/21 06:00 Results Labs on day of discharge: Labs from last 24 hours 09/28/21 09/28/21 09/27/21 05:28 05:28 12:40 WBC 11.2 H RBC 5.53 Hgb 16.3 Hct 48.2 MCV 87.1 MCH 29.5 MCHC 33.9 RDW 14.8 Plt Count 263 MPV 8.1 Neut % (Auto) 70.3 Lymph % (Auto) 19.9 [place] % (Auto) 7.2 Eos % (Auto) 1.5 Baso % (Auto) 1.3 Neut # (Auto) 7.9 H Lymph # (Auto) 2.2 [place] # (Auto) 0.8 Eos # (Auto) 0.2 Baso # (Auto) 0.2 Sodium 138 Potassium 4.0 Chloride 102 Carbon Dioxide 31 H Anion Gap 9.0 BUN 13 Creatinine 0.90 Estimated Creat Clear 101 Estimated GFR 89 Est GFR ( Amer) 108 Glucose 145 H POC Glucose 206 H Calcium 8.9 DS: Diagnosis - Discharge Diagnosis (1) Bronchopneumonia Status: Acute (2) Obesity Status: Acute (3) ST elevation myocardial infarction (STEMI) Status: Acute (4) Type 2 diabetes mellitus Status: Chronic (5) Hyperlipemia Status: Chronic (6) Tobacco abuse Status: Chronic (7) Hypertension Status: Acute Discharge Plan - Patient Discharge Instructions Patient Instructions: Heart Attack - Follow up Plan Follow up with: Andre Wiggins MD [Primary Care Provider] - Stephen Olmstead MD [Staff Phys
[2021-09-28 16:55] LABS: POC Glucose,Bedside 176 (70-110)
[2021-09-28 16:55] LABS: POC Glucose,Bedside 136 (70-110)
--- NOTE | 2021-09-28 17:30 | HMH.ACPN2 ---
Internal Medicine - PN: Subj *Date: 09/28/21 *Time: 08:20 Interval history: Patient overall did well overnight. No chest pain, shortness of breath, palpitations. Feels better today. Tolerating p.o. intake. In bedside chair on exam. Stable on room air. Blood pressure well controlled. Exam Vital signs and Labs for Last 24 Hours: Temp Pulse Resp BP Pulse Ox 98.1 F 70 29 H 128/64 98 09/28/21 15:49 09/28/21 15:49 09/28/21 15:49 09/28/21 12:00 09/28/21 14:02 Laboratory Results - last 24 hr 09/28/21 05:28: WBC 11.2 H, RBC 5.53, Hgb 16.3, Hct 48.2, MCV 87.1, MCH 29.5, MCHC 33.9, RDW 14.8, Plt Count 263, MPV 8.1, Neut % (Auto) 70.3, Lymph % (Auto) 19.9, [place] % (Auto) 7.2, Eos % (Auto) 1.5, Baso % (Auto) 1.3, Neut # (Auto) 7.9 H, Lymph # (Auto) 2.2, [place] # (Auto) 0.8, Eos # (Auto) 0.2, Baso # (Auto) 0.2 09/28/21 05:28: Sodium 138, Potassium 4.0, Chloride 102, Carbon Dioxide 31 H, Anion Gap 9.0, BUN 13, Creatinine 0.90, Estimated Creat Clear 101, Estimated GFR 89, Est GFR ( Amer) 108, Glucose 145 H, Calcium 8.9 09/28/21 12:01: POC Glucose 176 H 09/28/21 16:35: POC Glucose 136 H I & O for Last 24 hours: Intake & Output 09/25/21 09/26/21 09/27/21 09/28/21 23:59 23:59 23:59 23:59 Intake Total 2116 / 2356 1706 / 1706 Output Total 3550 / 3550 900 / 900 Balance -1434 / -1194 806 / 806 Weight 136.078 kg 134.808 kg 134.8 kg - Constitutional no acute distress, obese - *Routine HEENT Exam Head: Present: normocephalic Eye: Present: EOMI, PERRL ENT: Present: mucous membranes moist - *Routine Neck Exam Present: supple. Absent: lymphadenopathy - *Routine Respiratory Exam Present: CTA bilaterally - *Routine Cardiovascular Exam Present: RRR - *Routine Abdominal Exam Present: soft, normoactive bowel sounds. Absent: tenderness - *Routine Extremities Exam Absent: cyanosis, clubbing, edema Comments: Right radial insertion site clean dry and intact. - *Routine Skin Exam Present: warm. Absent: rash - *Routine Neurological Exam Present: alert, oriented X3 Assessment and Plan (1) ST elevation myocardial infarction (STEMI) Status: Acute Qualifiers: Involved coronary artery: unspecified coronary artery Qualified Code(s): I21.3 - ST elevation (STEMI) myocardial infarction of unspecified site Category: Medical Code(s): I21.3 - ST elevation (STEMI) myocardial infarction of unspecified site (2) Bronchopneumonia Status: Acute Category: Medical Code(s): J18.0 - Bronchopneumonia, unspecified organism (3) Obesity Status: Chronic Qualifiers: Obesity type: due to excess calories Obesity classification: adult class 3 (BMI >= 40) Serious obesity comorbidity presence: with serious comorbidity Body mass index: BMI 40.0-44.9 Qualified Code(s): E66.01 - Morbid (severe) obesity due to excess calories; Z68.41 - Body mass index [BMI] 40.0-44.9, adult Category: Medical Code(s): E66.9 - Obesity, unspecified (4) Type 2 diabetes mellitus Status: Chronic Qualifiers: Diabetes mellitus long term care phlebotomist insulin use: unspecified senior living insulin use status Diabetes mellitus complication status: with other specified complication Qualified Code(s): E11.69 - Type 2 diabetes mellitus with other specified complication Category: Medical Code(s): E11.9 - Type 2 diabetes mellitus without complications (5) Hyperlipemia Status: Chronic Category: Medical Code(s): E78.5 - Hyperlipidemia, unspecified (6) Tobacco abuse Status: Chronic Category: Medical Code(s): Z72.0 - Tobacco use (7) Hypertension Status: Acute Category: Medical Code(s): I10 - Essential (primary) hypertension - Assessment and plan all Dx Assessment and Plan for all problems:: Mr. Salazar is a 51-year-old male who presented to the ER with a STEMI. Taken to the Electronics Supervisor, see note for full details of intervention. Thrombus removed and stents placed. Given thrombus, car
[2021-09-28 20:19] LABS: POC Glucose,Bedside 185 (70-110)
[2021-09-28 20:19] LABS: POC Glucose,Bedside 270 (70-110)
[2021-09-28 20:19] LABS: POC Glucose,Bedside 115 (70-110)
[2021-09-28 20:19] LABS: POC Glucose,Bedside 155 (70-110)
--- NOTE | 2021-09-28 20:31 | PC.NURSE ---
1999 CARDIAC STRIP NOT OBTAINED DUE TO PT REFUSES TO WEAR ACQUISITION LEAD.NURSE AWARE
--- NOTE | 2021-09-29 01:20 | PC.NURSE ---
LATE ENTRY -0000 CARDIAC STRIP NOT OBTAINED.PT REFUSING TO WEAR COTTON PICKER .NURSE AWARE
[2021-09-29 04:00] VITALS: BP 106/60; PULSE 67; RESP 20; TEMP 36.6; O2SAT 95
--- NOTE | 2021-09-29 04:41 | PC.NURSE ---
Pt refused to wear heart monitor.
[2021-09-29 04:57] VITALS: BMI 42.1
[2021-09-29 06:12] VITALS: PULSE 79; PULSE 86; O2SAT 97
[2021-09-29 06:32] LABS: POC Glucose,Bedside 200 (70-110)
[2021-09-29 06:50] LABS: Basophils # 0.1 K/mm3 (0-0.2); Basophils % 0.9 % (0.1-2.0); Eosinophils # 0.1 K/mm3 (0.0-0.4); Eosinophils % 1.4 % (0.1-12.0); Hemoglobin 15.8 g/dL (14.1-18.0); Lymphocytes # 2.3 K/mm3 (0.7-4.5); Lymphocytes % 23.4 % (10-50); Mean Corpuscular HGB Conc 33.6 g/dL (31.8-35.4); Mean Corpuscular Hemoglobin 29.3 pg (27.0-31.2); Mean Corpuscular Volume 87.1 fl (80-94); Monocytes # 0.7 K/mm3 (0.1-1.0); Monocytes % 6.9 % (1.7-9.3); Neutrophils # 6.8 K/mm3 (1.8-7.8); Neutrophils % 67.4 % (37.0-80.0); Platelet Count 235 K/mm3 (142-424); Red Cell Distribution Width 14.9 % (11.5-17.5)
[2021-09-29 06:53] LABS: Chloride 103 mmol/L (98-107); Potassium 4.2 mmoL/L (3.5-5.1); Sodium 135 mmol/L (136-145)
[2021-09-29 06:56] LABS: Anion Gap 8.2 mEq/L (5-15); Blood Urea Nitrogen 17 mg/dl (9-20); Carbon Dioxide 28 mmol/L (22.0-30.0); Creatinine Clearance Estimated 101 mL/min (50-200); Estimated Glomerular Filt Rate 89 ml/min (>60); GFR (African American) 108 ML/MIN (>60)
[2021-09-29 06:57] LABS: Calcium 8.8 mg/dl (8.4-10.2); Glucose 207 mg/dl (74-100)
[2021-09-29 08:00] VITALS: BP 127/76; PULSE 75; RESP 18; TEMP 36.9; O2SAT 96
--- NOTE | 2021-09-29 08:05 | HMH.DCSUM ---
General - General Admission date:: 09/27/21 Discharge date: 09/29/21 HPI HPI: 51-year-old white male with multiple risk factors for cardiac disease including diabetes, hyperlipidemia, heavy smoking history as well as history of multidrug abuse, who came to the emergency department with cough, congestion and some anterior chest pain that was new onset over the past several hours. In the ER found to have STEMI with ST elevation, Chick Grader was activated and patient was taken to Chick Grader. Angiographic report from cardiology noted below: ANGIOGRAPHIC RESULTS The left main artery Normal The left anterior descending artery Has mild proximal and mid vessel 20% stenoses. This does give rise to a moderate sized ramus intermedius which has proximal 30 to 40% stenosis The circumflex artery Nondominant with diffuse proximal and mid vessel 20 to 30% stenoses The right coronary artery Is a massively large dominant vessel initially proximally occluded. Following revascularization the vessel had diffuse mild to moderate vascular ectasia with wide patency of the stents in the proximal mid and distal segment in a contiguous manner.. Distally the posterior lateral and posterior descending artery had diffuse 20 and 30% stenoses The LEONARD ventriculogram reveals Slight Santos dilated with inferior wall hypokinesis estimate ejection fraction is 40 to 45% The left ventricular end-diastolic pressure 20 to 25 mmHg IMPRESSION Massively large dominant right coronary artery which was proximally thrombosed with successful stenting of the proximal mid and distal dominant right coronary artery with 3 contiguous drug-eluting stents Regional wall motion abnormality with slightly reduced ejection fraction Elevated LVEDP Massively large vessels with diffuse mild vascular ectasia throughout the dominant right coronary artery PLAN 1. Brilinta 90 twice daily plus aspirin 81 mg daily 2. Because of the massively large size of the right coronary artery accompanied by the vascular ectasia and large thrombus burden, I would like to start patient on Integrilin and continue the drip for the next 18 to 24 hours 3. Start RACHANA inhibitor's and beta-blockers once hemodynamically stable 4. Avoidance of tobacco products 5. Risk factor modification 6. Cardiac rehabilitation 7. LDL less than 55 to be achieved with high intensity statin 8. Cardiac monitoring for the next 48 hours and then reassess with echocardiogram Monday morning Hospital Course Hospital Course: Patient was admitted, subjected to left heart cath as noted. He did well, and was continued on Integrilin drip for 24 hours because of his significant clot burden. He did well and had no further chest pain or shortness of air. DAPT, statins and beta-em and ARB were continued. Of note patient had a cough productive of green sputum and infiltrate on chest x-ray, treated with p.o. Levaquin -- this will be continued on discharge to complete a 7-day course This morning he was doing well, felt well. Cardiology cleared him for discharge and we discharged home on his new medication regimen. He wishes to follow with his previous family physician Dr. Eriwn in [place]. He will see cardiology next week. Objective Vital signs: Temp Pulse Resp BP Pulse Ox 97.9 F 79 20 106/60 L 97 09/29/21 04:00 09/29/21 06:12 09/29/21 04:00 09/29/21 04:00 09/29/21 06:12 no acute distress - *Routine HEENT Exam Head: Present: normocephalic Eye: Present: EOMI, PERRL ENT: Present: mucous membranes moist - *Routine Neck Exam Present: supple - *Routine Respiratory Exam Present: CTA bilaterally - *Routine Cardiovascular Exam Present: RRR - *Routine Abdominal Exam Present: soft, normoactive bowel sounds. Absent: tenderness - *Routine Extremities Exam Absent: cyanosis, clubbing, edema - *Routine Skin Exam Present: warm. Absent: rash - Detailed Eye Exam Eyelids: Bilateral norm
--- NOTE | 2021-09-29 08:06 | HMH.PNCARD ---
Subjective Date: 09/29/21 Time: 08:06 Principal diagnosis: Inferior STEMI Interval history: 51-year-old white male sitting at bedside chair no acute distress. Denies any chest pain, pressure or tightness overnight. Telemetry shows sinus rhythm with no arrhythmias. Blood pressure is well controlled on current medications. Patient did sleep okay after getting his pain medication yesterday. Exam Vital signs and Labs for Last 24 Hours: Temp Pulse Resp BP Pulse Ox 97.9 F 79 20 106/60 L 97 09/29/21 04:00 09/29/21 06:12 09/29/21 04:00 09/29/21 04:00 09/29/21 06:12 Laboratory Results - last 24 hr 09/27/21 17:23: POC Glucose 115 H 09/27/21 21:06: POC Glucose 270 H 09/28/21 05:59: POC Glucose 155 H 09/28/21 12:01: POC Glucose 176 H 09/28/21 16:35: POC Glucose 136 H 09/28/21 20:01: POC Glucose 185 H 09/29/21 06:06: WBC 10.0, RBC 5.40, Hgb 15.8, Hct 47.0, MCV 87.1, MCH 29.3, MCHC 33.6, RDW 14.9, Plt Count 235, MPV 8.0, Neut % (Auto) 67.4, Lymph % (Auto) 23.4, [place] % (Auto) 6.9, Eos % (Auto) 1.4, Baso % (Auto) 0.9, Neut # (Auto) 6.8, Lymph # (Auto) 2.3, [place] # (Auto) 0.7, Eos # (Auto) 0.1, Baso # (Auto) 0.1 09/29/21 06:06: Sodium 135 L, Potassium 4.2, Chloride 103, Carbon Dioxide 28, Anion Gap 8.2, BUN 17 D, Creatinine 0.90, Estimated Creat Clear 101, Estimated GFR 89, Est GFR ( Amer) 108, Glucose 207 H, Calcium 8.8 09/29/21 06:26: POC Glucose 200 H I & O for Last 24 hours: Intake & Output 09/26/21 09/27/21 09/28/21 09/29/21 11:59 11:59 11:59 11:59 Intake Total 120 / 120 2716 / 2716 1466 / 1466 Output Total 1750 / 1750 2700 / 2700 Balance -1630 / -1630 16 / 16 1466 / 1466 Weight 297 lb 3.2 oz 297 lb 2.93 oz 294 lb 9 oz - Constitutional no acute distress - *Routine HEENT Exam Head: Present: normocephalic Eye: Present: EOMI, PERRL ENT: Present: mucous membranes moist - *Routine Neck Exam Present: supple. Absent: lymphadenopathy - *Routine Respiratory Exam Present: CTA bilaterally - *Routine Cardiovascular Exam Present: RRR - *Routine Abdominal Exam Present: soft, normoactive bowel sounds. Absent: tenderness - *Routine Extremities Exam Absent: cyanosis, clubbing, edema - *Routine Skin Exam Present: warm. Absent: rash - *Routine Neurological Exam Present: alert, oriented X3 Progress Note: A&P (1) ST elevation myocardial infarction (STEMI) Status: Acute (2) Bronchopneumonia Status: Acute (3) Obesity Status: Chronic (4) Type 2 diabetes mellitus Status: Chronic (5) Hyperlipemia Status: Chronic (6) Tobacco abuse Status: Chronic (7) Hypertension Status: Acute Assessment and Plan for All Diagnoses:: 1. Inferior STEMI, status post 3 JB to RCA. Continue aspirin and Brilinta. No arrhythmias noted on telemetry. 2. Ischemic cardiomyopathy with ejection fraction 40-45% at time of cardiac cath. Echocardiogram obtained yesterday shows EF 55%. Amlodipine discontinued due to ischemic cardiomyopathy. 3. Diabetes mellitus, per Dr. Calero. Hemoglobin A1c is 10. 4. Hyperlipidemia, atorvastatin has been resumed. LDL 49 this admission. Triglycerides 249 with HDL 24 this admission. 5. Hypertension, patient is back on ARB and beta-em therapy. 6. Tobacco use, strongly encourage cessation. Cardiac status stable for discharge. Home medication recommendations Aspirin 81 mg daily Brilinta 90 mg twice daily Coreg 6.25 mg twice daily Losartan 50 mg daily Atorvastatin 40 mg daily Farxiga 10 mg daily Spironolactone 25 mg daily Discontinue amlodipine Follow-up in our office in 1 week.
--- NOTE | 2021-09-29 08:35 | PC.NURSE ---
Pt is calling his daughter to come get him. I am waiting on ride to d/c pt.
--- NOTE | 2021-09-29 08:59 | PC.NURSE ---
Spoke with shelby from central lab technician about pt's cardiac rehab appt before discharge. I seen that the order was in, but not the appt. She stated that they will call the pt to set that up. It was okay to d/c without the appt being made.
--- NOTE | 2021-09-29 09:50 | HMH.PHACLD ---
Augustine Santillan has received discharge medication counseling on the following medications: PATIENT BEING DISCHARGED WITH PRESCRIPTIONS FOR BRILINTA 90 MG BID AND ASPIRIN 81 MG DAILY. MD REDUCING DOSES OF CARVEDILOL TO 6.25 MG BID AND LOSARTAN TO 50 MG DAILY. ALSO STOPPING AMLODIPINE AT THIS TIME. FOLLOW UP ON 10/06/21 AT 1:30.
--- NOTE | 2021-09-30 12:01 | CARE MANAGER ---
Called and spoke with patient regarding post discharge status. Patient states that he is feeling better. He confirmed that he picked up his medication from the pharmacy. He plans to attend his appointment with Dr. Olmstead on 10/06, and his appointment with Dr. Erwin on 10/18. He states that he attempted to move his appointment to an earlier date but was unsuccessful. Patient has no known needs at this time.
== END 2021-09-29 09:48 | disposition home or self-care (01) | DRG 246 ==
LOC: ER 23:36 → CATHLAB 23:36 → 2ND 09-27 07:27
PROVIDERS: Internal Medicine; Internal Medicine Adolescent Medicine; Physician Assistant; Admitting Provider Internal Medicine Adolescent Medicine; Emergency Provider Emergency Medicine; PCP Family Medicine; Visit Provider Internal Medicine Adolescent Medicine
PROC: B2111ZZ Fluoroscopy of Multiple Coronary Arteries using Low Osmolar Contrast (ICD-10-PCS; principal; 2021-09-26 22:50)
DX: I21.19 ST elevation (STEMI) myocardial infarction involving other coronary artery of inferior wall (principal); J18.0 Bronchopneumonia, unspecified organism; Z68.41 Body mass index [BMI] 40.0-44.9, adult; I25.10 Atherosclerotic heart disease of native coronary artery without angina pectoris; E66.01 Morbid (severe) obesity due to excess calories; E78.5 Hyperlipidemia, unspecified; Z71.6 Tobacco abuse counseling; F17.210 Nicotine dependence, cigarettes, uncomplicated; E11.40 Type 2 diabetes mellitus with diabetic neuropathy, unspecified; J43.9 Emphysema, unspecified; I25.5 Ischemic cardiomyopathy; Z79.4 Long term (current) use of insulin
CPT/HCPCS: 36415; 71045; 80048; 80053; 80061; 80305; 82150; 82962; 83690; 83735; 83880; 84145; 84484; 85025; 85347; 85651; 86140; 92941; 93005; 93306; 93458; 94640; 94761; 96375; 99152; 99153; 99285; C1725; C1760; C1769; C1876; C9606; C9803; J1327; J1644; J1956; Q9967; U0003; U0005

== ENCOUNTER → 2021-10-06 13:24 | Outpatient (CLI) | payer MEDICARE, SELFPAY ==
[2021-10-06 13:49] LABS: Blood Urea Nitrogen 14 mg/dl (9-20); Estimated Glomerular Filt Rate 89 ml/min (>60); GFR (African American) 108 ML/MIN (>60)
[2021-10-06 14:01] LABS: Hematocrit 46.7 % (42.0-52.0); Hemoglobin 15.8 g/dL (14.1-18.0)
== END ==
PROVIDERS: PCP Family Medicine; Visit Provider Internal Medicine Adolescent Medicine
DX: I25.10 Atherosclerotic heart disease of native coronary artery without angina pectoris (principal); E11.40 Type 2 diabetes mellitus with diabetic neuropathy, unspecified; E78.5 Hyperlipidemia, unspecified; Z79.4 Long term (current) use of insulin
CPT/HCPCS: 36415; 82565; 84520; 85014; 85018

== ENCOUNTER 2021-10-12 09:53 | Outpatient (RCR) | payer MEDICARE, SELFPAY | END 2021-11-15 10:55 | disposition home or self-care (01) | LOC: PT 09:53 | PROVIDERS: Visit Provider Internal Medicine | DX: I25.10 Atherosclerotic heart disease of native coronary artery without angina pectoris (principal); Z95.5 Presence of coronary angioplasty implant and graft | CPT/HCPCS: 93798 ==

== ENCOUNTER → 2021-12-07 09:35 | Outpatient (CLI) | payer MEDICARE, MEDICAID, SELFPAY ==
--- NOTE | 2021-12-07 09:38 | CA_ITS ---
FINAL REPORT TECHNIQUE: Color Doppler, duplex Doppler and gama scale sonography of the bilateral neck vasculature was performed. Velocities were measured in the carotid arteries. Stenosis evaluation based on velocity criteria. CLINICAL HISTORY: vision loss of right eye, smoker, DM, HLD, HTN, CAD recent cardiac stents, morbid obesity. FINDINGS: The peak systolic velocity of the right common carotid artery is 126 cm/sec and internal carotid artery 137 cm/sec. The diastolic velocity in the internal carotid artery is 39 cm/sec. The ICA/CCA ratio is 1.52. Visually, a small amount of plaque is seen. These findings are consistent with less than 50% stenosis. The external carotid artery is patent. The right vertebral artery is patent with antegrade flow. The peak systolic velocity of the left common carotid artery is 130 cm/sec and internal carotid artery 92 cm/sec. The diastolic velocity in the internal carotid artery is 29 cm/sec. The ICA/CCA ratio is 0.97. Visually, a small amount of plaque is seen. These findings are consistent with less than 50% stenosis. The external carotid artery is patent. The left vertebral artery is patent with antegrade flow. IMPRESSION: No evidence of significant carotid stenosis. Bilateral patent vertebral arteries. If indicated, CTA or MRA could further evaluate. Reviewed, Interpreted and Dictated by Chapo Jacobs III, MD Transcribed by Griselda Howard Authenticated and [facility]
== END ==
PROVIDERS: PCP Family Medicine; Visit Provider Family Medicine
DX: H54.61 Unqualified visual loss, right eye, normal vision left eye (principal); H35.82 Retinal ischemia; I25.10 Atherosclerotic heart disease of native coronary artery without angina pectoris; E11.65 Type 2 diabetes mellitus with hyperglycemia; Z79.4 Long term (current) use of insulin
CPT/HCPCS: 93880

== ENCOUNTER 2021-12-24 22:57 | Emergency (ER) | payer MEDICARE, MEDICAID, SELFPAY ==
[2021-12-24 23:01] VITALS: BP 130/80; PULSE 82; RESP 16; TEMP 37; O2SAT 95; BMI 43.7
[2021-12-24 23:18] LABS: Coronavirus 19, PCR Not Detected (NotDetected); Influenza A, PCR Not Detected (NotDetected); Influenza B, PCR Not Detected (NotDetected)
--- NOTE | 2021-12-24 23:29 | XR_ITS ---
PROCEDURE INFORMATION: Exam: XR Chest Exam date and time: 12/24/2021 11:31 PM Age: 51 years old Clinical indication: Shortness of breath; Additional info: Chest pain TECHNIQUE: Imaging protocol: Radiologic exam of the chest. Views: 2 views. COMPARISON: CR XR CHEST PORTABLE 09/27/2021 7:29 AM FINDINGS: Lungs: Increased interstitial markings especially within the lung bases may reflect pulmonary edema or fluid overload. Clinical correlation is needed. Pleural spaces: Unremarkable. No pleural effusion. No pneumothorax. Heart/Mediastinum: Unremarkable. No cardiomegaly. Bones/joints: Unremarkable. IMPRESSION: Increased interstitial markings especially within the lung bases may reflect pulmonary edema or fluid overload. Clinical correlation is needed.
[2021-12-24 23:30] VITALS: BP 119/72; PULSE 83; O2SAT 96
[2021-12-25] VITALS: BP 130/72; PULSE 79; O2SAT 96
--- NOTE | 2021-12-25 00:15 | PC.NURSE ---
Pt given bottle of water per request
--- NOTE | 2021-12-25 00:19 | HMH.EDURI ---
Discharge Plan Disposition Patient Disposition: Home, Self-Care Chief Complaint: Upper Respiratory Infection Prescriptions Prescriptions: New benzonatate 100 mg Capsule 100 mg PO Q8H Qty: 20 0RF cephalexin [cephalexin] 500 mg capsule 500 mg PO TID Qty: 30 0RF No Action citalopram 20 mg tablet 20 mg PO QDAY Qty: 90 0RF losartan 100 mg tablet 100 mg PO DAILY Qty: 30 5RF spironolactone 50 mg tablet 25 mg PO DAILY Qty: 15 5RF carvedilol 12.5 mg tablet 12.5 mg PO BID Qty: 60 5RF atorvastatin 80 mg tablet 80 mg PO HS Qty: 90 3RF ticagrelor 90 mg tablet 90 mg PO BID Qty: 180 3RF hydrocodone-acetaminophen 1 EACH tablet 1 tab PO QIDP PRN (Reason: Moderate Pain) dapagliflozin 10 MG tablet 10 mg PO DAILY metformin 1,000 MG tablet 1,000 mg PO BID insulin NPH and regular human 100 UNIT/ML insulin pen 45 unit SQ BID levofloxacin 500 MG tablet 500 mg PO DAILY Qty: 7 0RF aspirin 81 MG tablet,delayed release (DR/EC) 81 mg PO DAILY 30 Days Qty: 30 3RF Referrals Referrals: Paresh Erwin MD [Primary Care Provider] - Enter time for follow up Clinical Impressions Clinical Impression: Bronchitis Instructions Patient Instructions: DI for Acute Bronchitis Discharge ED Provider: Stefan Felder URI/Sore Throat HPI General Chief Complaint: Upper Respiratory Infection Stated Complaint: Cough,sneezing X'2 days Time Seen by Provider: 12/25/21 00:20 Mode of Arrival: Ambulatory Source of Information: Patient and Medical Record Limitations: No Limitations Description of Symptoms (Recalled from ER Triage Doc. by RN): PT REPORTS HE HAD CATARACT SX ON MONDAY- AND HAS BEEN COUGHING AND SNEEZING THE LAST TWO DAYS AND IS AFRAID OF MESSING UP HIS SURGERY. History of Present Illness HPI Narrative: uri sx with cough and congestion over the last 2 days - recent cataract surg MD Complaint: cough and nasal congestion Onset (ago): day(s) Duration: intermittent Severity: moderate Able to tolerate fluids by mouth: Yes Associated symptoms: fever, nasal congestion and cough Related Data Home Medications Medication Instructions Recorded Confirmed dapagliflozin 10 mg tablet 10 mg PO DAILY Diabetes 09/26/21 10/22/21 hydrocodone 10 mg-acetaminophen 1 tab PO QIDP PRN Moderate Pain 09/26/21 10/22/21 325 mg tablet metformin 1,000 mg tablet 1,000 mg PO BID Diabetes 09/26/21 10/22/21 insulin NPH-regular 70-30 U-100 45 unit SQ BID Diabetes 09/27/21 10/22/21 insulin 100 unit/mL subcutaneous pen Previous Rx's Medication Instructions Recorded citalopram 20 mg tablet 20 mg PO QDAY . #90 tabs 08/07/18 aspirin 81 mg tablet,delayed 81 mg PO DAILY 30 days #30 tabs 09/29/21 release levofloxacin 500 mg tablet 500 mg PO DAILY #7 tabs 09/29/21 losartan 100 mg tablet 100 mg PO DAILY Hypertension #30 10/06/21 tabs spironolactone 50 mg tablet 25 mg PO DAILY fluid #15 tabs 10/06/21 atorvastatin 80 mg tablet 80 mg PO HS Cholesterol #90 tabs 10/22/21 carvedilol 12.5 mg tablet 12.5 mg PO BID #60 tabs 10/22/21 ticagrelor 90 mg tablet 90 mg PO BID #180 tabs 12/22/21 benzonatate 100 mg capsule 100 mg PO Q8H #20 caps 12/25/21 cephalexin 500 mg capsule 500 mg PO TID #30 caps 12/25/21 Allergies Allergy/AdvReac Type Severity Reaction Status Date / Time No Known Allergies Allergy Verified 10/22/21 11:19 [facility] Medical History (Updated 12/25/21 @ 00:30 by Stefan Felder MD) Back pain of lumbar region with sciatica CAD (coronary artery disease) Social History Smoking Status: Never smoker alcohol intake: never substance use type: denies use current occupational status: unemployed household members: family housing: house caffeine: Yes ROS Obtained: Yes All systems reviewed & no additional complaints except as documented Constitutional Constitutional: Reports fever(s) Eyes Eyes: Denies loss of peripheral vision ENT Ear
[2021-12-25 00:30] VITALS: BP 123/69; PULSE 83; O2SAT 96
[2021-12-25 00:46] VITALS: BP 123/69; PULSE 77; RESP 18; TEMP 36.8; O2SAT 96
== END 2021-12-25 00:48 | disposition home or self-care (01) ==
PROVIDERS: Emergency Provider Emergency Medicine; PCP Family Medicine
DX: J06.9 Acute upper respiratory infection, unspecified (principal); R09.81 Nasal congestion; R50.9 Fever, unspecified; R05.9 Cough, unspecified; Z20.822 Contact with and (suspected) exposure to COVID-19; I25.10 Atherosclerotic heart disease of native coronary artery without angina pectoris; M54.16 Radiculopathy, lumbar region; Z79.4 Long term (current) use of insulin; Z79.82 Long term (current) use of aspirin; Z79.84 Long term (current) use of oral hypoglycemic drugs; Z79.899 Other long term (current) drug therapy
CPT/HCPCS: 71046; 99283; C9803; U0003; U0005

== ENCOUNTER 2022-04-06 12:18 | Emergency (ER) | payer MEDICARE, MEDICAID, SELFPAY ==
[2022-04-06 12:18] VITALS: BP 105/78; PULSE 71; RESP 20; TEMP 36.9; O2SAT 100; BMI 43.0
[2022-04-06 12:20] VITALS: BP 108/76; PULSE 72; RESP 20; TEMP 36.8; O2SAT 100
[2022-04-06 12:32] VITALS: BMI 42.9
--- NOTE | 2022-04-06 12:33 | XR_ITS ---
FINAL REPORT CLINICAL HISTORY: cough COMPARISON: December 24, 2021 FINDINGS: A single portable view of the chest was obtained. The heart size and pulmonary vascularity are within normal limits. The mediastinum is within normal limits. There are mild bibasilar pulmonary opacities. The bony thorax is intact. IMPRESSION: Mild bibasilar pulmonary opacities favoring atelectasis or scarring. Reviewed, Interpreted and Dictated by Chapo Jacobs III, MD Transcribed by Quita Robles Authenticated and [facility]
[2022-04-06 12:36] LABS: Influenza A, PCR Not Detected (NotDetected); Influenza B, PCR Not Detected (NotDetected)
--- NOTE | 2022-04-06 12:38 | HMH.EDGENADL ---
Discharge Plan Disposition Patient Disposition: Home, Self-Care Condition: Good Prescriptions Prescriptions: New benzonatate 100 mg capsule 100 mg PO BID Qty: 60 0RF No Action citalopram 20 mg tablet 20 mg PO QDAY Qty: 90 0RF losartan 100 mg tablet 100 mg PO DAILY Qty: 30 5RF carvedilol 12.5 mg tablet 12.5 mg PO BID Qty: 60 5RF atorvastatin 80 mg tablet 80 mg PO HS Qty: 90 3RF ticagrelor 90 mg tablet 90 mg PO BID Qty: 180 3RF spironolactone 50 mg tablet 25 mg PO DAILY Qty: 15 5RF benzonatate 100 mg Capsule 100 mg PO Q8H Qty: 20 0RF cephalexin [cephalexin] 500 mg capsule 500 mg PO TID Qty: 30 0RF hydrocodone-acetaminophen 1 EACH tablet 1 tab PO QIDP PRN (Reason: Moderate Pain) dapagliflozin 10 MG tablet 10 mg PO DAILY metformin 1,000 MG tablet 1,000 mg PO BID insulin NPH and regular human 100 UNIT/ML insulin pen 45 unit SQ BID levofloxacin 500 MG tablet 500 mg PO DAILY Qty: 7 0RF aspirin 81 MG tablet,delayed release (DR/EC) 81 mg PO DAILY 30 Days Qty: 30 3RF Referrals Follow up/Referrals: Paresh Erwin MD [Primary Care Provider] - See instructions Activity Restrictions/Add. Instructions Additional Instructions/Restrictions: Please follow-up with primary care physician within the next few days via tele-health. Please self quarantine for 5 days. Please take Tylenol for fever and comfort. Please take cough suppressant medication as prescribed. Drink plenty of water. Clinical Impressions Clinical Impression: COVID-19 Instructions Patient Instructions: DI for COVID-19 (Suspected or Confirmed ) Print Language Print Language: Cameroonian Discharge ED Provider: Kelsey Mai Adult HPI General Chief complaint: Upper Respiratory Infection Stated complaint: Cough, drainage Time Seen by Provider: 04/06/22 12:20 Mode of Arrival: Ambulatory Source of Information: Patient Limitations: No Limitations History of Present Illness HPI narrative: Mr. Santillan is a 52 year old male w/ PMH significant for tobacco abuse presenting to the ED for non productive cough, congestion. He denies chest pain or dyspnea. Reports symptoms onset 2-3d prior. He denies any known sick contacts. No abdominal pain, N/V/V, fevers or other infectious sx. No LE swelling, abdominal swelling or other fluid retention. MD complaint: cough, congestion Related Data Home Medications Medication Instructions Recorded Confirmed dapagliflozin 10 mg tablet 10 mg PO DAILY Diabetes 09/26/21 01/21/22 hydrocodone 10 mg-acetaminophen 1 tab PO QIDP PRN Moderate Pain 09/26/21 01/21/22 325 mg tablet metformin 1,000 mg tablet 1,000 mg PO BID Diabetes 09/26/21 01/21/22 insulin NPH-regular 70-30 U-100 45 unit SQ BID Diabetes 09/27/21 01/21/22 insulin 100 unit/mL subcutaneous pen Previous Rx's Medication Instructions Recorded citalopram 20 mg tablet 20 mg PO QDAY . #90 tabs 08/07/18 aspirin 81 mg tablet,delayed 81 mg PO DAILY 30 days #30 tabs 09/29/21 release levofloxacin 500 mg tablet 500 mg PO DAILY #7 tabs 09/29/21 losartan 100 mg tablet 100 mg PO DAILY Hypertension #30 10/06/21 tabs atorvastatin 80 mg tablet 80 mg PO HS Cholesterol #90 tabs 10/22/21 carvedilol 12.5 mg tablet 12.5 mg PO BID #60 tabs 10/22/21 ticagrelor 90 mg tablet 90 mg PO BID #180 tabs 12/22/21 benzonatate 100 mg capsule 100 mg PO Q8H #20 caps 12/25/21 cephalexin 500 mg capsule 500 mg PO TID #30 caps 12/25/21 spironolactone 50 mg tablet 25 mg PO DAILY fluid #15 tabs 01/10/22 benzonatate 100 mg capsule 100 mg PO BID #60 caps 04/06/22 Allergies Allergy/AdvReac Type Severity Reaction Status Date / Time No Known Allergies Allergy Verified 01/21/22 10:59 [facility] Disclaimer: The information contained in this section may have been updated after the patient was seen, as this information can be updated by other users. Medical History (Updated 04/06/22 @ 13:2
[2022-04-06 13:00] LABS: Coronavirus 19, PCR Detected (NotDetected)
== END 2022-04-06 12:20 | disposition home or self-care (01) ==
PROVIDERS: Emergency Provider Student in an Organized Health Care Education/Training Program; PCP Family Medicine
DX: U07.1 COVID-19 (principal)
CPT/HCPCS: 71045; 99283; C9803; U0003; U0005

== ENCOUNTER 2022-06-19 21:35 | Observation (INO) | payer MEDICARE, MEDICAID, SELFPAY ==
[2022-06-19 21:37] VITALS: BP 100/58; PULSE 82; RESP 16; TEMP 37; O2SAT 96; BMI 41.8
--- NOTE | 2022-06-19 21:59 | XR_ITS ---
PROCEDURE INFORMATION: Exam: XR Chest Exam date and time: 06/19/2022 10:44 PM Age: 52 years old Clinical indication: Cough TECHNIQUE: Imaging protocol: Radiologic exam of the chest. Views: 2 views. COMPARISON: CR XR CHEST PORTABLE 04/06/2022 12:54 PM FINDINGS: Lungs: Unremarkable. No consolidation. Pleural spaces: Unremarkable. No pleural effusion. No pneumothorax. Heart/Mediastinum: Unremarkable. No cardiomegaly. Bones/joints: Mild degenerative changes noted throughout the thoracic spine IMPRESSION: No acute disease
--- NOTE | 2022-06-19 21:59 | ECG_ITS ---
APPROVED REPORT Exam: Resting ECG HR:80 bpm ECG Measurements Heart Rate 80 AXES MN 158 P 21 QRSd 116 QRS 87 QT 386 T 58 QTc 421 Conclusion SINUS RHYTHM Old inferior q waves of questionable significance o/w NORMAL ECG UNCONFIRMED REPORT Electronically signed by : Paresh Calero MD 06/20/2022 18:52:43
[2022-06-19 22:00] VITALS: BP 96/56; PULSE 86; O2SAT 96
[2022-06-19 22:12] LABS: Coronavirus 19, PCR Not Detected (NotDetected); Influenza A, PCR Not Detected (NotDetected); Influenza B, PCR Not Detected (NotDetected)
[2022-06-19 22:14] LABS: Basophils # 0.1 K/mm3 (0-0.2); Basophils % 0.8 % (0.1-2.0); Eosinophils # 0.5 K/mm3 (0.0-0.4); Eosinophils % 4.9 % (0.1-12.0); Hemoglobin 7.7 g/dL (14.1-18.0); Lymphocytes # 1.5 K/mm3 (0.7-4.5); Lymphocytes % 16.1 % (10-50); Mean Corpuscular HGB Conc 29.6 g/dL (31.8-35.4); Mean Corpuscular Hemoglobin 17.9 pg (27.0-31.2); Mean Corpuscular Volume 60.6 fl (80-94); Mean Platelet Volume 9.2 fl (7.4-10.4); Monocytes # 0.7 K/mm3 (0.1-1.0); Monocytes % 7.8 % (1.7-9.3); Neutrophils # 6.6 K/mm3 (1.8-7.8); Neutrophils % 70.4 % (37.0-80.0); Platelet Count 310 K/mm3 (142-424); Red Cell Distribution Width 20.5 % (11.5-17.5); White Blood Count 9.3 K/mm3 (4.8-10.8)
[2022-06-19 22:22] LABS: Chloride 106 mmol/L (98-107); Potassium 4.2 mmoL/L (3.5-5.1); Sodium 137 mmol/L (136-145)
--- NOTE | 2022-06-19 22:22 | HMH.EDSOB ---
Discharge Plan Disposition Patient Disposition: Admitted As Inpatient Chief Complaint: Shortness of Breath/Dyspnea Clinical Impressions Clinical Impression: Anemia, Acute dyspnea Discharge ED Provider: Bradford (ED)Stefan Resp/SOB HPI General Chief Complaint: Shortness of Breath/Dyspnea Stated Complaint: SOA,cough, Time Seen by Provider: 06/19/22 22:00 Mode of Arrival: Ambulatory Limitations: No Limitations Description of Symptoms (Recalled from ER Triage Doc. by RN): pt c/o SOA, with a dry hacky cough with burning in his chest that started yesterday History of Present Illness over the last few days has progressive sob with activity - no def chest pain MD Complaint: shortness of breath Onset (ago): day(s) Severity: moderate Known history of: diabetes Associated symptoms: denies other symptoms Related Data Home oxygen amount: none Home Medications Medication Instructions Recorded Confirmed dapagliflozin 10 mg tablet 10 mg PO DAILY Diabetes 09/26/21 01/21/22 hydrocodone 10 mg-acetaminophen 1 tab PO QIDP PRN Moderate Pain 09/26/21 01/21/22 325 mg tablet metformin 1,000 mg tablet 1,000 mg PO BID Diabetes 09/26/21 01/21/22 insulin NPH-regular 70-30 U-100 45 unit SQ BID Diabetes 09/27/21 01/21/22 insulin 100 unit/mL subcutaneous pen Previous Rx's Medication Instructions Recorded citalopram 20 mg tablet 20 mg PO QDAY . #90 tabs 08/07/18 aspirin 81 mg tablet,delayed 81 mg PO DAILY 30 days #30 tabs 09/29/21 release losartan 100 mg tablet 100 mg PO DAILY Hypertension #30 10/06/21 tabs atorvastatin 80 mg tablet 80 mg PO HS Cholesterol #90 tabs 10/22/21 ticagrelor 90 mg tablet 90 mg PO BID #180 tabs 12/22/21 benzonatate 100 mg capsule 100 mg PO Q8H #20 caps 12/25/21 spironolactone 50 mg tablet 25 mg PO DAILY fluid #15 tabs 01/10/22 benzonatate 100 mg capsule 100 mg PO BID #60 caps 04/06/22 carvedilol 12.5 mg tablet See Rx Instructions .Route 04/19/22 .COMPLEX #90 tabs Allergies Allergy/AdvReac Type Severity Reaction Status Date / Time No Known Allergies Allergy Verified 01/21/22 10:59 PFSH PFSH Disclaimer: The information contained in this section may have been updated after the patient was seen, as this information can be updated by other users. 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 CAD (coronary artery disease) Surgical History Hx of cataract surgery Social History Smoking Status: Current every day smoker tobacco type: cigarettes packs per day: 1 alcohol intake: never substance use type: denies use current occupational status: unemployed Travel in the last 8 weeks: None household members: family housing: house caffeine: Yes ROS Obtained: Yes All systems reviewed & no additional complaints except as documented Physical Exam General General appearance: alert and obese Head Head exam: normocephalic Eye Eye exam: Present PERRL, EOMI and other (pale conj) ENT ENT exam: Present mucous membranes moist Neck Neck exam: Present trachea midline Respiratory Respiratory exam: Absent respiratory distress Cardiovascular Cardiovascular exam: Present regular rate and systolic murmur Abdominal Exam Abdominal exam: Present soft Extremities Exam Extremities exam: Present full ROM and edema; Absent joint swelling Neurological Exam Neurological exam: Present alert and CN II-XII intact Psychiatric Psychiatric exam: Present normal affect Skin Skin exam: Absent rash Medical Decision Making Medical Records Medical records reviewed: Yes I reviewed the patient's medical records. [place] Inquiry Pt receiving controlled substance: No Vital Signs: 06/19/22 21:37 06/19/22 22:00 06/19/22 22:30 Temperature 98.6 F Temperature Source Oral Pulse Rate 86 87 Pulse Rate [Right] 82 Respiratory Ra
[2022-06-19 22:25] LABS: Alanine Aminotransferase 19 U/L (12-78); Albumin Level 4.2 g/dl (3.5-5.0); Albumin/Globulin Ratio 1.3 (1.1-1.8); Alkaline Phosphatase 103 U/L (38-126); Anion Gap 9.2 mEq/L (5-15); Aspartate Amino Transferase 28 U/L (17-59); Bilirubin,Total 0.6 mg/dl (0.2-1.3); Blood Urea Nitrogen 16 mg/dl (9-20); Carbon Dioxide 26 mmol/L (22.0-30.0); Creatinine Clearance Estimated 78 mL/min (50-200); Estimated Glomerular Filt Rate 64 ml/min (>60); GFR (African American) 77 ML/MIN (>60); Globulin 3.3 g/dL (1.3-3.2); Total Protein,Serum 7.5 g/dl (6.3-8.2)
[2022-06-19 22:26] LABS: Calcium 8.6 mg/dl (8.4-10.2); Glucose 164 mg/dl (74-100)
[2022-06-19 22:30] VITALS: BP 94/52; PULSE 87; O2SAT 95
--- NOTE | 2022-06-19 22:38 | PC.NURSE ---
Rounded on patient, no needs at this time.
[2022-06-19 22:40] LABS: Troponin I < 0.01 ng/ml (0.00-0.034)
--- NOTE | 2022-06-19 22:55 | PC.NURSE ---
pt in radiology
[2022-06-19 23:00] VITALS: BP 116/64; PULSE 83; O2SAT 96
--- NOTE | 2022-06-19 23:25 | PC.NURSE ---
speaking with hospitalist
[2022-06-19 23:31] VITALS: BP 103/52; PULSE 84; O2SAT 97
--- NOTE | 2022-06-19 23:31 | PC.NURSE ---
called house r/t admission
--- NOTE | 2022-06-19 23:33 | PC.NURSE ---
Patient admitted observation to 202 with dyspnea and anemia to service of Hospitalist.
[2022-06-19 23:49] LABS: NT Pro Brain Natriuretic Pep. 119 pg/mL (0-125)
--- NOTE | 2022-06-19 23:51 | PC.NURSE ---
Called report to Roberto
--- NOTE | 2022-06-19 23:53 | CT_ITS ---
PROCEDURE INFORMATION: Exam: CTA Abdomen and Pelvis With Contrast Exam date and time: 06/20/2022 12:22 AM Age: 52 years old Clinical indication: Other: Anemia TECHNIQUE: Imaging protocol: Computed tomographic angiography of the abdomen and pelvis with contrast. 3D rendering (Not supervised by radiologist): MIP and/or 3D reconstructed images were created by the technologist. Radiation optimization: All CT scans at this facility use at least one of these dose optimization techniques: automated exposure control; mA and/or kV adjustment per patient size (includes targeted exams where dose is matched to clinical indication); or iterative reconstruction. Contrast material: ISOVUE; Contrast volume: 100 ml; Contrast route: INTRAVENOUS (IV); Other protocol: This patient has received [address] and 0 known cardiac nuclear medicine studies in the 12 months prior to the current study. COMPARISON: CR XR CHEST 2V 06/19/2022 10:44 PM FINDINGS: Aorta: Mild scattered atherosclerotic calcifications are noted in the aorta. No evidence of aortic aneurysm or dissection. Celiac trunk and mesenteric arteries: No occlusion or significant stenosis. Renal arteries: No occlusion or significant stenosis. Right iliac arteries: No occlusion or significant stenosis. Left iliac arteries: No occlusion or significant stenosis. Liver: No mass. Gallbladder and bile ducts: Unremarkable. No calcified stones. No ductal dilation. Pancreas: Unremarkable. No mass. No ductal dilation. Spleen: Unremarkable. No splenomegaly. Adrenal glands: Unremarkable. No mass. Kidneys and ureters: There are single small bilateral renal cortical cysts, each measuring approximally 17 mm. No evidence of hydronephrosis. Stomach and bowel: Long segment wall thickening of multiple small bowel loops in the right lower quadrant and adjacent mesenteric edema compatible with enteritis. No evidence of bowel obstruction. Appendix: No evidence of appendicitis. Intraperitoneal space: No free air or free fluid Lymph nodes: Unremarkable. No enlarged lymph nodes. Urinary bladder: Unremarkable. No mass. Reproductive: Unremarkable as visualized. Bones/joints: Moderate degenerative changes noted in the lumbar spine Soft tissues: There is a large umbilical hernia containing only fat. IMPRESSION: 1. Moderate findings of enteritis in the right lower quadrant 2. Large fat containing umbilical hernia without bowel involvement 3. Chronic osseous and atherosclerotic changes. No evidence of aortic aneurysm or dissection.
--- NOTE | 2022-06-19 23:53 | CT_ITS ---
PROCEDURE INFORMATION: Exam: CTA Chest With Contrast Exam date and time: 06/20/2022 12:22 AM Age: 52 years old Clinical indication: Cough; Additional info: Anemia TECHNIQUE: Imaging protocol: Computed tomographic angiography of the chest with contrast. 3D rendering (Not supervised by radiologist): MIP and/or 3D reconstructed images were created by the technologist. Radiation optimization: All CT scans at this facility use at least one of these dose optimization techniques: automated exposure control; mA and/or kV adjustment per patient size (includes targeted exams where dose is matched to clinical indication); or iterative reconstruction. Contrast material: ISOVUE; Contrast volume: 100 ml; Contrast route: INTRAVENOUS (IV); Other protocol: This patient has received [address] and 0 known cardiac nuclear medicine studies in the 12 months prior to the current study. COMPARISON: CR XR CHEST 2V 06/19/2022 10:44 PM FINDINGS: Pulmonary arteries: Normal. No pulmonary emboli. Aorta: Unremarkable. No aortic aneurysm. No aortic dissection. Lungs: Unremarkable. No consolidation. No masses. Pleural spaces: Unremarkable. No pneumothorax. No pleural effusion. Heart: Unremarkable. No cardiomegaly. No pericardial effusion. Coronary arteries: Coronary artery calcifications are noted. Lymph nodes: There is mild bilateral hilar and mediastinal lymphadenopathy. Bones/joints: Moderate degenerative changes noted throughout the thoracic spine. Soft tissues: Unremarkable. IMPRESSION: Mild nonspecific intrathoracic lymphadenopathy. Chronic osseous and atherosclerotic changes. Otherwise unremarkable chest CT
[2022-06-20] VITALS (22 sets, daily range): BP systolic 84–127; BP diastolic 45–73; PULSE 71–81; RESP 16–20; TEMP 36.7–37.2; O2SAT 93–98; BMI 40.8
--- NOTE | 2022-06-20 00:07 | PC.NURSE ---
Rounded on patient. Patient helped with needs voiced at this time.
--- NOTE | 2022-06-20 00:15 | PC.NURSE ---
pt gone to CT at this time.
--- NOTE | 2022-06-20 00:26 | PC.NURSE ---
Patient back in room at this time.
--- NOTE | 2022-06-20 00:50 | PC.NURSE ---
arrived to the floor via wheelchair at this time
--- NOTE | 2022-06-20 00:57 | EXP.HP ---
History of Present Illness *Admission Date: 06/20/22 *Reason for visit:: Cough *History of present illness: This is a 60-year-old man with past medical history of recent STEMI with 3 stents in September, hypertension, who presents emergency department today with complaints of cough and congestion. Reports severe cough that is present when he lays flat. She reports the cough causes him to be dizzy. Denies any lower extremity edema. He denies any chest pain, abdominal pain, denies any ripping or tearing sensation. He denies any melena, hematochezia or hematemesis. Emergency department work-up significant for symptomatic anemia with a hemoglobin of 7.7. Baseline hemoglobin 6 months ago was 15. Chest x-ray negative, all other laboratory evaluation unremarkable. He was noted to have a blood pressure of 100/50 on arrival to the emergency department without tachycardia. Given patient's symptomatic anemia he will be admitted for further work-up and evaluation. [facility] Disclaimer: The information contained in this section may have been updated after the patient was seen, as this information can be updated by other users. 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 CAD (coronary artery disease) Depression Diabetes mellitus, type 2 History of heart attack Hypertension Surgical History (Updated 06/20/22 @ 09:09 by Simona Loo RN) Hx of cataract surgery Hx of heart artery stent Family History (Updated 06/20/22 @ 09:08 by Simona Loo RN) Cancer of kidney Father Social History (Updated 06/20/22 @ 09:10 by Simona Loo RN) Smoking Status: Current every day smoker tobacco type: cigarettes packs per day: 1 alcohol intake: never substance use type: denies use current occupational status: unemployed Travel in the last 8 weeks: None household members: family housing: house caffeine: Yes Review of Systems Review of Systems Review of systems:: pertinent systems reviewed and negative unless documented below *Respiratory Respiratory: Reports cough Meds Home Medications and Allergies Home Medications Medication Instructions Recorded Confirmed Type dapagliflozin 10 mg tablet 10 mg PO DAILY Diabetes 09/26/21 06/20/22 History metformin 1,000 mg tablet 1,000 mg PO BID Diabetes 09/26/21 06/20/22 History insulin NPH-regular 70-30 U-100 45 unit SQ BID Diabetes 09/27/21 06/20/22 History insulin 100 unit/mL subcutaneous pen atorvastatin 80 mg tablet 80 mg PO HS Cholesterol #90 tabs 10/22/21 06/20/22 Rx spironolactone 50 mg tablet 25 mg PO DAILY fluid #15 tabs 01/10/22 06/20/22 Rx aspirin 81 mg tablet,delayed 81 mg PO DAILY heart health 06/20/22 06/20/22 History release carvedilol 12.5 mg tablet 12.5 mg PO BID High blood pressure 06/20/22 06/20/22 History citalopram 20 mg tablet 20 mg PO DAILY Depression 06/20/22 06/20/22 History losartan 100 mg tablet 100 mg PO DAILY High blood pressure 06/20/22 06/20/22 History oxycodone-acetaminophen 10 mg-325 1 tab PO Q4HP PRN Pain 06/20/22 06/20/22 History mg tablet ticagrelor 90 mg tablet 90 mg PO BID Blood thinner 06/20/22 06/20/22 History New Prescriptions to Start Prescriptions: Allergies Allergy/AdvReac Type Severity Reaction Status Date / Time No Known Allergies Allergy Verified 01/21/22 10:59 Exam Data for Last 24 hours Vital signs and Labs for Last 24 Hours: Temp Pulse Resp BP Pulse Ox 98.6 F 77 16 100/60 L 95 06/19/22 21:37 06/20/22 00:00 06/19/22 21:37 06/20/22 00:00 06/20/22 00:00 Laboratory Results - last 24 hr 06/19/22 22:01: SARS-CoV-2 (PCR) Not detected, Influenza A Untype (PCR) Not detected, Influenza Type B (PCR) Not detected 06/19/22 22:03: WBC 9.3, RBC 4.30 L, Hgb 7.7 L, Hct 26.0 L, MCV 60.6 L, MCH 17.9 L, MCHC 29.6 L, RDW 20.5 H, Plt Count 310, MPV 9.2, Neut % (Auto) 70.4, Lymph % (Auto) 16.1, [place] % (Auto) 7.8, Eos % (Auto) 4.9, Baso % (Aut
[2022-06-20 01:04] LABS: Troponin I < 0.01 ng/ml (0.00-0.034)
[2022-06-20 01:14] LABS: Iron 23 ug/dL (49-181)
[2022-06-20 01:25] LABS: Total Iron Binding Capacity 407 ug/dL (261-462)
[2022-06-20 01:59] LABS: Ferritin 4.23 ng/ml (17.9-464)
[2022-06-20 02:22] LABS: Vitamin B12 310 pg/mL (239-931)
[2022-06-20 05:57] LABS: POC Glucose,Bedside 127 (70-110)
--- NOTE | 2022-06-20 06:37 | PC.NURSE ---
Pt. aox4 getting NS @ 5O ml through a 20g in the L AC. He got one unit of blood last night for a hgb of 7.7, Also has some swelling in this scrotum. Stand by assist because of his blood pressures sitting, standing and lying.
[2022-06-20 07:04] LABS: Basophils # 0.1 K/mm3 (0-0.2); Basophils % 1.1 % (0.1-2.0); Eosinophils # 0.5 K/mm3 (0.0-0.4); Eosinophils % 5.6 % (0.1-12.0); Hematocrit 25.9 % (42.0-52.0); Hemoglobin 7.4 g/dL (14.1-18.0); Lymphocytes # 1.5 K/mm3 (0.7-4.5); Lymphocytes % 18.6 % (10-50); Mean Corpuscular HGB Conc 28.6 g/dL (31.8-35.4); Mean Corpuscular Hemoglobin 18.1 pg (27.0-31.2); Mean Corpuscular Volume 63.4 fl (80-94); Mean Platelet Volume 8.1 fl (7.4-10.4); Monocytes # 0.7 K/mm3 (0.1-1.0); Monocytes % 9.1 % (1.7-9.3); Neutrophils # 5.3 K/mm3 (1.8-7.8); Neutrophils % 65.7 % (37.0-80.0); Platelet Count 242 K/mm3 (142-424); Red Blood Count 4.09 M/mm3 (4.60-6.20); Red Cell Distribution Width 20.8 % (11.5-17.5); White Blood Count 8.1 K/mm3 (4.8-10.8)
--- NOTE | 2022-06-20 07:10 | HMH.PHAINT1 ---
Pharmacy Intervention Comments: Medication reconciliation completed utilizing external fill history
[2022-06-20 07:13] LABS: Chloride 108 mmol/L (98-107); Sodium 137 mmol/L (136-145)
[2022-06-20 07:16] LABS: Blood Urea Nitrogen 14 mg/dl (9-20); Carbon Dioxide 27 mmol/L (22.0-30.0); Creatinine Clearance Estimated 90 mL/min (50-200); Estimated Glomerular Filt Rate 79 ml/min (>60); GFR (African American) 95 ML/MIN (>60)
[2022-06-20 07:17] LABS: Glucose 114 mg/dl (74-100); Magnesium 2.4 mg/dl (1.6-2.3)
[2022-06-20 07:24] LABS: Troponin I < 0.01 ng/ml (0.00-0.034)
[2022-06-20 11:50] LABS: POC Glucose,Bedside 199 (70-110)
--- NOTE | 2022-06-20 13:59 | EXP.SURG.CON ---
History of Present Illness *Admission Date: 06/20/22 *History of present illness: Obtained from admission history and physical: This is a 60-year-old man with past medical history of recent STEMI with 3 stents in September, hypertension, who presents emergency department today with complaints of cough and congestion. Reports severe cough that is present when he lays flat. She reports the cough causes him to be dizzy. Denies any lower extremity edema. He denies any chest pain, abdominal pain, denies any ripping or tearing sensation. He denies any melena, hematochezia or hematemesis. Emergency department work-up significant for symptomatic anemia with a hemoglobin of 7.7. Baseline hemoglobin 6 months ago was 15. Chest x-ray negative, all other laboratory evaluation unremarkable. He was noted to have a blood pressure of 100/50 on arrival to the emergency department without tachycardia. Given patient's symptomatic anemia he will be admitted for further work-up and evaluation. Patient was transfused 1 unit of packed red blood cells for hemoglobin of 7.7. Interestingly, follow-up hemoglobin is 7.4. Once again, patient denies hematochezia or melena symptoms. [facility] Disclaimer: The information contained in this section may have been updated after the patient was seen, as this information can be updated by other users. 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 CAD (coronary artery disease) Depression Diabetes mellitus, type 2 History of heart attack Hypertension Surgical History (Updated 06/20/22 @ 09:09 by Simona Loo RN) Hx of cataract surgery Hx of heart artery stent Family History (Updated 06/20/22 @ 09:08 by Simona Loo RN) Cancer of kidney Father Social History (Updated 06/20/22 @ 09:10 by Simona Loo RN) Smoking Status: Current every day smoker tobacco type: cigarettes packs per day: 1 alcohol intake: never substance use type: denies use current occupational status: unemployed Travel in the last 8 weeks: None household members: family housing: house caffeine: Yes Meds Home Medications and Allergies Home Medications Medication Instructions Recorded Confirmed Type dapagliflozin 10 mg tablet 10 mg PO DAILY Diabetes 09/26/21 06/20/22 History metformin 1,000 mg tablet 1,000 mg PO BID Diabetes 09/26/21 06/20/22 History insulin NPH-regular 70-30 U-100 45 unit SQ BID Diabetes 09/27/21 06/20/22 History insulin 100 unit/mL subcutaneous pen atorvastatin 80 mg tablet 80 mg PO HS Cholesterol #90 tabs 10/22/21 06/20/22 Rx spironolactone 50 mg tablet 25 mg PO DAILY fluid #15 tabs 01/10/22 06/20/22 Rx aspirin 81 mg tablet,delayed 81 mg PO DAILY heart health 06/20/22 06/20/22 History release carvedilol 12.5 mg tablet 12.5 mg PO BID High blood pressure 06/20/22 06/20/22 History citalopram 20 mg tablet 20 mg PO DAILY Depression 06/20/22 06/20/22 History losartan 100 mg tablet 100 mg PO DAILY High blood pressure 06/20/22 06/20/22 History oxycodone-acetaminophen 10 mg-325 1 tab PO Q4HP PRN Pain 06/20/22 06/20/22 History mg tablet ticagrelor 90 mg tablet 90 mg PO BID Blood thinner 06/20/22 06/20/22 History New Prescriptions to Start Prescriptions: Allergies Allergy/AdvReac Type Severity Reaction Status Date / Time No Known Allergies Allergy Verified 01/21/22 10:59 Exam (Inpt) Vital signs and Labs for Last 24 Hours: Temp Pulse Resp BP Pulse Ox 98.3 F 79 16 113/73 93 L 06/20/22 08:00 06/20/22 08:00 06/20/22 08:00 06/20/22 08:00 06/20/22 08:00 Laboratory Results - last 24 hr 06/19/22 00:24: Blood Type Confirm O Positive 06/19/22 22:01: SARS-CoV-2 (PCR) Not detected, Influenza A Untype (PCR) Not detected, Influenza Type B
[2022-06-20 15:54] LABS: Hematocrit 26.1 % (42.0-52.0); Hemoglobin 7.7 g/dL (14.1-18.0)
[2022-06-20 16:45] LABS: POC Glucose,Bedside 175 (70-110)
[2022-06-20 19:59] LABS: Lactate Dehydrogenase 243 U/L (313-618)
[2022-06-20 20:25] LABS: Occult Blood,Stool Positive (Negative)
[2022-06-20 20:57] LABS: POC Glucose,Bedside 273 (70-110)
[2022-06-21 04:00] VITALS: BP 95/53; PULSE 82; RESP 18; TEMP 36.5; O2SAT 93; BMI 40.4
--- NOTE | 2022-06-21 05:12 | PC.NURSE ---
pt a&ox4. room air. pt receiving iv protonix and fluids. complained of chronic back pain, home meds ordered and pain med given. pt had positive fecal occult blood. no other bowel movements through the night. vss.
[2022-06-21 05:42] LABS: POC Glucose,Bedside 146 (70-110)
[2022-06-21 07:32] LABS: Basophils # 0.1 K/mm3 (0-0.2); Basophils % 0.9 % (0.1-2.0); Eosinophils # 0.3 K/mm3 (0.0-0.4); Eosinophils % 4.5 % (0.1-12.0); Hematocrit 26.5 % (42.0-52.0); Hemoglobin 7.5 g/dL (14.1-18.0); Lymphocytes # 1.5 K/mm3 (0.7-4.5); Lymphocytes % 19.8 % (10-50); Mean Corpuscular HGB Conc 28.5 g/dL (31.8-35.4); Mean Corpuscular Hemoglobin 18.1 pg (27.0-31.2); Mean Corpuscular Volume 63.5 fl (80-94); Mean Platelet Volume 7.3 fl (7.4-10.4); Monocytes # 0.6 K/mm3 (0.1-1.0); Monocytes % 8.3 % (1.7-9.3); Neutrophils % 66.5 % (37.0-80.0); Platelet Count 220 K/mm3 (142-424); Red Blood Count 4.17 M/mm3 (4.60-6.20); Red Cell Distribution Width 21.2 % (11.5-17.5); White Blood Count 7.6 K/mm3 (4.8-10.8)
[2022-06-21 07:37] VITALS: BP 123/77; PULSE 83; RESP 18; TEMP 36.5; O2SAT 98
--- NOTE | 2022-06-21 07:40 | EXP.SURG.PN ---
Subjective Patient reports: no new complaints Narrative: No hematochezia. No melena. Hemocult stool positive. Exam Data for Last 24 hours Vital signs and Labs for Last 24 Hours: Temp Pulse Resp BP Pulse Ox 97.7 F 82 18 95/53 L 93 L 06/21/22 04:00 06/21/22 04:00 06/21/22 04:00 06/21/22 04:00 06/21/22 04:00 Laboratory Results - last 24 hr 06/20/22 00:10: Lactate Dehydrogenase 243 L 06/20/22 11:41: POC Glucose 199 H 06/20/22 15:45: Hgb 7.7 L, Hct 26.1 L 06/20/22 16:24: POC Glucose 175 H 06/20/22 19:33: Stool Occult Blood Positive A 06/20/22 20:49: POC Glucose 273 H 06/21/22 05:34: POC Glucose 146 H I & O for Last 24 hours: Intake & Output 06/18/22 06/19/22 06/20/22 06/21/22 11:59 11:59 11:59 11:59 Intake Total 250 / 250 1480 / 1480 Output Total 900 / 900 0 / 0 Balance -650 / -650 1480 / 1480 Weight 291 lb 8 oz 288 lb 8 oz *Routine Abdominal Exam Abdominal: Present soft Progress Note: A&P Assessment and plan (1) Anemia: Status: Acute Assessment and plan: Labs pending.Will need colonoscopy, possible EGD, potentially as outpatient. (2) CAD (coronary artery disease): Status: Chronic (3) Hyperlipemia: Status: Chronic (4) Type 2 diabetes mellitus: Status: Chronic (5) Hypertension: Status: Acute
[2022-06-21 07:45] LABS: Chloride 110 mmol/L (98-107)
[2022-06-21 07:46] LABS: Sodium 139 mmol/L (136-145)
[2022-06-21 07:48] LABS: Blood Urea Nitrogen 13 mg/dl (9-20); Creatinine Clearance Estimated 90 mL/min (50-200); Estimated Glomerular Filt Rate 79 ml/min (>60); GFR (African American) 95 ML/MIN (>60)
[2022-06-21 07:49] LABS: Calcium 7.8 mg/dl (8.4-10.2); Carbon Dioxide 27 mmol/L (22.0-30.0); Glucose 134 mg/dl (74-100)
--- NOTE | 2022-06-21 10:47 | EXP.DC.SUM ---
General Admission date:: 06/20/22 Discharge date: 06/21/22 HPI HPI HPI: Obtained from admission history and physical: This is a 60-year-old man with past medical history of recent STEMI with 3 stents in September, hypertension, who presents emergency department today with complaints of cough and congestion. Reports severe cough that is present when he lays flat. She reports the cough causes him to be dizzy. Denies any lower extremity edema. He denies any chest pain, abdominal pain, denies any ripping or tearing sensation. He denies any melena, hematochezia or hematemesis. Emergency department work-up significant for symptomatic anemia with a hemoglobin of 7.7. Baseline hemoglobin 6 months ago was 15. Chest x-ray negative, all other laboratory evaluation unremarkable. He was noted to have a blood pressure of 100/50 on arrival to the emergency department without tachycardia. Given patient's symptomatic anemia he will be admitted for further work-up and evaluation. Patient was transfused 1 unit of packed red blood cells for hemoglobin of 7.7. Interestingly, follow-up hemoglobin is 7.4. Once again, patient denies hematochezia or melena symptoms. Hospital Course Hospital Course Hospital Course: Consulted neuro rotation overnight for admission, decision made to admit patient.? Receiving transfusion.? Problems addressed as follows: Microcytic anemia secondary to blood loss Iron deficiency Presented with symptomatic anemia to the ER. Patient noted to have hemoglobin of 7.7. Denies melena or bloody stools. Surgery consulted. No active bleeding during admission. Transfused 1 unit with no change in hemoglobin. Serial H&H showed hemoglobin between 7.4 and 7.7. Discontinued patient's aspirin and Brilinta as he has been on them since at least September of last year. Risk of continuing at this time with increased risk of bleeding outweighs benefit for now. Would recommend resuming after performing colonoscopy. Surgery planning for outpatient colonoscopy this Monday. Provided with bowel prep prior to discharge. Of note, stool occult was positive during admission. As patient is hemodynamically stable with stable hemoglobins, plan to discharge home with close outpatient follow-up and further managing. Suspect likely GI source for patient's bleeding/blood loss anemia. Continue pantoprazole. Patient had microcytic anemia on labs, administered 1 dose Venofer IV during admission. Would benefit from further IV iron infusions as an outpatient. Coronary artery disease DAPT on hold, Resume when able after scopes to work-up source of anemia HLD: Continue home statin medication T2DM: Continue sliding scale insulin HTN: Continue home carvedilol Exam Data for Last 24 hours Vital signs and Labs for Last 24 Hours: Temp Pulse Resp BP Pulse Ox 97.7 F 83 18 123/77 98 06/21/22 07:37 06/21/22 07:37 06/21/22 07:37 06/21/22 07:37 06/21/22 07:37 Laboratory Results - last 24 hr 06/20/22 00:10: Lactate Dehydrogenase 243 L 06/20/22 11:41: POC Glucose 199 H 06/20/22 15:45: Hgb 7.7 L, Hct 26.1 L 06/20/22 16:24: POC Glucose 175 H 06/20/22 19:33: Stool Occult Blood Positive A 06/20/22 20:49: POC Glucose 273 H 06/21/22 05:34: POC Glucose 146 H 06/21/22 06:30: WBC 7.6, RBC 4.17 L, Hgb 7.5 L, Hct 26.5 L, MCV 63.5 L, MCH 18.1 L, MCHC 28.5 L, RDW 21.2 H, Plt Count 220, MPV 7.3 L, Neut % (Auto) 66.5, Lymph % (Auto) 19.8, Real % (Auto) 8.3, Eos % (Auto) 4.5, Baso % (Auto) 0.9, Neut # (Auto) 5.0, Lymph # (Auto) 1.5, Real # (Auto) 0.6, Eos # (Auto) 0.3, Baso # (Auto) 0.1 06/21/22 06:30: Sodium 139, Potassium 4.0, Chloride 110 H, Carbon Dioxide 27, Anion Gap 6.0, BUN 13, Creatinine 1.00, Estimated Creat Clear 90, Estimated GFR 79, Est GFR ( Amer) 95, Glucose 134 H, Calcium 7.8 L
--- NOTE | 2022-06-21 10:53 | HMH.PHAINT1 ---
Pharmacy Intervention Comments: Medication reconciliation discussed with patient. Patient verbalized understanding and had no questions at this time.
[2022-06-21 11:02] VITALS: BP 128/54; PULSE 65; RESP 17; TEMP 36.8; O2SAT 99
[2022-06-22 08:16] LABS: Haptoglobin 186 mg/dL (29-370)
--- NOTE | 2022-06-22 10:24 | CARE MANAGER ---
Spoke with patient for post-discharge follow-up, no issues noted.
[2022-06-22 11:39] LABS: Peripheral Smear Review Scanned Results
== END 2022-06-21 11:50 | disposition home or self-care (01) ==
LOC: ER 22:14 → 2ND 06-20 00:54
PROVIDERS: Nurse Practitioner Acute Care; Surgery; Admitting Provider Internal Medicine Adolescent Medicine; Emergency Provider Emergency Medicine; PCP Internal Medicine Adolescent Medicine; Visit Provider Internal Medicine Adolescent Medicine
DX: I25.10 Atherosclerotic heart disease of native coronary artery without angina pectoris (principal); R06.9 Unspecified abnormalities of breathing; D50.9 Iron deficiency anemia, unspecified; I10 Essential (primary) hypertension; R06.02 Shortness of breath; E11.9 Type 2 diabetes mellitus without complications; Z79.4 Long term (current) use of insulin; F17.210 Nicotine dependence, cigarettes, uncomplicated; I25.2 Old myocardial infarction; Z95.5 Presence of coronary angioplasty implant and graft; Z79.01 Long term (current) use of anticoagulants; Z20.822 Contact with and (suspected) exposure to COVID-19
CPT/HCPCS: G0378; 36415; 71046; 71275; 74174; 80048; 80053; 82272; 82607; 82728; 82746; 82962; 83010; 83540; 83550; 83605; 83615; 83735; 83880; 84484; 85014; 85018; 85025; 86850; 93005; 99285; C9803; G0328; J1756; P9016; Q9967; U0003; U0005

== ENCOUNTER 2022-06-24 10:30 | Day surgery (SDC) | payer MEDICARE, MEDICAID, SELFPAY ==
[2022-06-24] VITALS (7 sets, daily range): BP systolic 95–166; BP diastolic 45–68; PULSE 78–96; RESP 16–18; TEMP 36.2–36.8; O2SAT 92–99; BMI 41.8; BMI 43.0
[2022-06-24 10:59] LABS: POC Glucose,Bedside 152 (70-110)
--- NOTE | 2022-06-24 11:17 | EXP.GEN.HP ---
HPI HPI HPI: Patient is a 60-year-old male with history of coronary artery disease with previous STEMI. He was recently admitted with complaints of cough and congestion. Evaluation in the emergency department revealed anemia with a hemoglobin of 7.7 with baseline hemoglobin recently of 15. Patient was transfused 1 unit of packed red blood cells and subsequent hemoglobin was actually 7.4. Hemoglobin remained stable for some time at this level. Patient never had symptoms of melena or hematochezia. He did have stool occult positive. Plan was made for early outpatient panendoscopy. [facility] Disclaimer: The information contained in this section may have been updated after the patient was seen, as this information can be updated by other users. 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 CAD (coronary artery disease) Depression Diabetes mellitus, type 2 History of heart attack Hypertension Surgical History Hx of cataract surgery Hx of heart artery stent Family History Cancer of kidney Father Social History Smoking Status: Current every day smoker tobacco type: cigarettes packs per day: 1 alcohol intake: never substance use type: denies use current occupational status: unemployed Travel in the last 8 weeks: None household members: family housing: house caffeine: Yes Meds Home Medications and Allergies Home Medications Medication Instructions Recorded Confirmed Type dapagliflozin 10 mg tablet 10 mg PO DAILY Diabetes 09/26/21 06/24/22 History metformin 1,000 mg tablet 1,000 mg PO BID Diabetes 09/26/21 06/24/22 History insulin NPH-regular 70-30 U-100 45 unit SQ BID Diabetes 09/27/21 06/24/22 History insulin 100 unit/mL subcutaneous pen atorvastatin 80 mg tablet 80 mg PO HS Cholesterol #90 tabs 10/22/21 06/24/22 Rx spironolactone 50 mg tablet 25 mg PO DAILY fluid #15 tabs 01/10/22 06/24/22 Rx aspirin 81 mg tablet,delayed 81 mg PO DAILY heart health 06/20/22 06/24/22 History release carvedilol 12.5 mg tablet 12.5 mg PO BID High blood pressure 06/20/22 06/24/22 History citalopram 20 mg tablet 20 mg PO DAILY Depression 06/20/22 06/24/22 History losartan 100 mg tablet 100 mg PO DAILY High blood pressure 06/20/22 06/24/22 History oxycodone-acetaminophen 10 mg-325 1 tab PO Q4HP PRN Pain 06/20/22 06/24/22 History mg tablet ticagrelor 90 mg tablet 90 mg PO BID Blood thinner 06/20/22 06/24/22 History pantoprazole 40 mg tablet,delayed 40 mg PO DAILY GERD 06/24/22 06/24/22 History release New Prescriptions to Start Prescriptions: Allergies Allergy/AdvReac Type Severity Reaction Status Date / Time No Known Allergies Allergy Verified 06/24/22 10:45 Exam Data for Last 24 hours Vital signs and Labs for Last 24 Hours: Temp Pulse Resp BP Pulse Ox 97.8 F 96 H 18 96/45 L 94 L 06/24/22 10:51 06/24/22 10:51 06/24/22 10:51 06/24/22 10:51 06/24/22 10:51 Laboratory Results - last 24 hr 06/24/22 10:49: POC Glucose 152 H I & O for Last 24 hours: Intake & Output 06/21/22 06/22/22 06/23/22 06/24/22 11:59 11:59 11:59 11:59 Weight 300 lb *Routine HEENT Exam Head: Present normocephalic Eye: Present EOMI ENT: Present mucous membranes moist *Routine Respiratory Exam Respiratory: Present CTA bilaterally *Routine Cardiovascular Exam Cardiovascular: Present RRR *Routine Abdominal Exam Abdominal: Present soft and hernia *Routine Rectal Exam Rectal:: deferred *Routine Genitalia Exam Genitalia:: deferred Results Results Lab Results Last 24 Hours:: Laboratory Results - last 24 hr 06/24/22 10:49: POC Glucose 152 H Assessment and Plan *Assessment and plan (1) Anemia: Status: Acute Category: Me
[2022-06-24 11:19] LABS: Basophils # 0.1 K/mm3 (0-0.2); Eosinophils # 0.1 K/mm3 (0.0-0.4); Eosinophils % 1.3 % (0.1-12.0); Hematocrit 29.5 % (42.0-52.0); Hemoglobin 8.4 g/dL (14.1-18.0); Lymphocytes # 1.5 K/mm3 (0.7-4.5); Lymphocytes % 19.6 % (10-50); Mean Corpuscular HGB Conc 28.4 g/dL (31.8-35.4); Mean Corpuscular Hemoglobin 18.4 pg (27.0-31.2); Mean Corpuscular Volume 64.6 fl (80-94); Mean Platelet Volume 7.3 fl (7.4-10.4); Monocytes # 0.4 K/mm3 (0.1-1.0); Monocytes % 5.4 % (1.7-9.3); Neutrophils # 5.7 K/mm3 (1.8-7.8); Neutrophils % 72.7 % (37.0-80.0); Platelet Count 293 K/mm3 (142-424); Red Blood Count 4.57 M/mm3 (4.60-6.20); Red Cell Distribution Width 23.3 % (11.5-17.5); White Blood Count 7.8 K/mm3 (4.8-10.8)
--- NOTE | 2022-06-24 11:24 | EXP.ANES.CKL ---
[facility] Disclaimer: The information contained in this section may have been updated after the patient was seen, as this information can be updated by other users. 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 CAD (coronary artery disease) Depression Diabetes mellitus, type 2 History of heart attack Hypertension Surgical History Hx of cataract surgery Hx of heart artery stent Family History Father Cancer of kidney Social History Smoking Status: Current every day smoker tobacco type: cigarettes packs per day: 1 alcohol intake: never substance use type: denies use current occupational status: unemployed Travel in the last 8 weeks: None household members: family housing: house caffeine: Yes [facility] Anesthesia Checklist Patient Identification Patient Identification: Arm Band Structural Data Admitted From: Home Planned Operative Procedure/s: EGD/Colonoscopy Consent for Planned Operative Procedure(s) Verified: Yes Verified Documents: Surgical Consent and History and Physical NPO Status Verified Time NPO: 00:00 Additional verifications Anesthesia Reactions: No Airway Assessment C-Spine Mobility Assessed: Yes TMJ Mobility Assessed: Yes Dentition: Good Dentition Neurological Assessment Level of Consciousness: Awake and Alert Anesthesia Plan Anesthesia Risk discussed: Yes Anesthesia Plan: Verified ASA Class: III Anesthesia Type: MAC
--- NOTE | 2022-06-24 12:23 | HMH.SCOPE ---
Procedure: Date: 06/24/22 Patient Date of :: 1970 Procedure Performed:: Esophagogastroduodenoscopy with biopsies Total colonoscopy with polypectomy Indications:: Patient is a 60-year-old male with history of coronary artery disease with previous STEMI.? He was recently admitted with complaints of cough and congestion.? Evaluation in the emergency department revealed anemia with a hemoglobin of 7.7 with baseline hemoglobin relatively recently of 15.? Patient was transfused 1 unit of packed red blood cells and subsequent hemoglobin was actually 7.4.? Hemoglobin remained stable for some time at this level.? Patient never had symptoms of melena or hematochezia.? He did have stool occult positive.? Plan was made for early outpatient panendoscopy. Hemoglobin in the morning of the procedure was 8.4. Of note, the patient does have a massive umbilical hernia which he has elected to not undergo repair. Performing Provider:: Chapo Clark MD Referring Provider:: Paersh Erwin MD Sedation:: MAC sedation Procedure:: Patient history was obtained and appropriate physical examination was performed. Patient's medications and allergies were reviewed. Informed consent was obtained after explaining the benefits, alternatives, and risks of the procedure including, but not limited to, bleeding, perforation, missed lesions, and adverse reaction to anesthesia medications. Patient was transported to endoscopy procedure room. Patient was connected to monitoring devices. Throughout the procedure the patient's blood pressure, pulse, and oxygen saturations were monitored continuously. Patient identification and planned procedure were verified by the staff. Attention was first turned to upper endoscopy. Endoscope was inserted via the oropharynx. Esophagus appeared normal. Stomach was cannulated and insufflated. Retroflexion revealed no evidence of any hiatal hernia. There was a somewhat acute appearing erosion at the pylorus. There was no active bleeding. Pylorus was traversed. Duodenum appeared unremarkable. Gastric antral mucosal biopsy was obtained. Stomach was desufflated and the endoscope was withdrawn. Patient was repositioned for colonoscopy in lateral decubitus position. Digital anorectal exam was performed. Variable stiffness Olympus colonoscope was inserted and advanced under direct visualization to the cecum. Adequacy of the colonic preparation was noted. The colonoscope was advanced very briefly into the ileocecal valve. The colonoscope was then slowly withdrawn while carefully examining the color, texture, anatomy, and integrity of the mucosoa circumferentially. Within the rectum retroflexion was performed. Colonoscope was then withdrawn. Findings:: Upper endoscopy revealed no obvious source for anemia with only a superficial but somewhat acute appearing erosion at the pylorus. Colonoscopy revealed an adenomatous appearing polyp in the proximal sigmoid colon which was removed in its entirety with cold snare. There was a sessile moderate polyp in the sigmoid colon at approximately 40 cm which was removed mostly with cold snare with residual polyp removed with additional use of cold snare and biopsy. The area was marked with Lisseth ink as a tattoo for future reference. Retroflexion within the rectum revealed no evidence of any pathologic hemorrhoids. Impression: Gastroesophageal junction at 40 cm Pyloric erosion Fair preparation with good visualization using irrigation and suctioning Proximal sigmoid adenomatous appearing polyp removed with cold snare Sigmoid polyp removed in a piecemeal fashion with cold snare and biopsy and marked with Lisseth ink for tattoo Recommendations:: No source on EGD or colonoscopy that would explain his anemia. May need small bowel evaluation. I will see if he can see hematology. Recommend repeat colonoscopy in 2 years given fair preparation and polyps. Complications:: None immediately apparent Estim
== END 2022-06-24 13:05 | disposition home or self-care (01) ==
PROVIDERS: PCP Family Medicine; Visit Provider Surgery
PROC: 0DJ08ZZ Inspection of Upper Intestinal Tract, Via Natural or Artificial Opening Endoscopic (ICD-10-PCS; CPT 43235; principal; 2022-06-24 11:30)
DX: D64.9 Anemia, unspecified (principal); R19.5 Other fecal abnormalities; K42.9 Umbilical hernia without obstruction or gangrene; D12.5 Benign neoplasm of sigmoid colon; K31.9 Disease of stomach and duodenum, unspecified; F17.210 Nicotine dependence, cigarettes, uncomplicated; Z79.899 Other long term (current) drug therapy; E11.9 Type 2 diabetes mellitus without complications
CPT/HCPCS: 43239; 45380; 45385; 82962; 85025; 88305; J2704

== ENCOUNTER → 2022-06-29 10:10 | Outpatient (CLI) | payer MEDICARE, MEDICAID, SELFPAY ==
[2022-06-29 10:52] LABS: Basophils # 0.1 K/mm3 (0-0.2); Basophils % 0.7 % (0.1-2.0); Eosinophils # 0.1 K/mm3 (0.0-0.4); Eosinophils % 1.1 % (0.1-12.0); Hematocrit 31.8 % (42.0-52.0); Hemoglobin 9.2 g/dL (14.1-18.0); Lymphocytes # 1.5 K/mm3 (0.7-4.5); Lymphocytes % 18.3 % (10-50); Mean Corpuscular Hemoglobin 18.7 pg (27.0-31.2); Mean Corpuscular Volume 64.6 fl (80-94); Mean Platelet Volume 8.5 fl (7.4-10.4); Monocytes # 0.5 K/mm3 (0.1-1.0); Monocytes % 5.8 % (1.7-9.3); Neutrophils # 6.2 K/mm3 (1.8-7.8); Neutrophils % 74.1 % (37.0-80.0); Platelet Count 332 K/mm3 (142-424); Red Blood Count 4.93 M/mm3 (4.60-6.20); Red Cell Distribution Width 22.2 % (11.5-17.5); White Blood Count 8.4 K/mm3 (4.8-10.8)
[2022-06-29 11:33] LABS: Chloride 102 mmol/L (98-107); Potassium 4.6 mmoL/L (3.5-5.1); Sodium 136 mmol/L (136-145)
[2022-06-29 11:36] LABS: Anion Gap 13.6 mEq/L (5-15); Blood Urea Nitrogen 15 mg/dl (9-20); Carbon Dioxide 25 mmol/L (22.0-30.0); Estimated Glomerular Filt Rate 79 ml/min (>60); GFR (African American) 95 ML/MIN (>60)
[2022-06-29 11:37] LABS: Calcium 8.8 mg/dl (8.4-10.2); Glucose 141 mg/dl (74-100)
== END ==
PROVIDERS: PCP Family Medicine; Visit Provider Nurse Practitioner
DX: D64.9 Anemia, unspecified (principal); E11.69 Type 2 diabetes mellitus with other specified complication; E66.01 Morbid (severe) obesity due to excess calories; E78.2 Mixed hyperlipidemia; I10 Essential (primary) hypertension; I25.10 Atherosclerotic heart disease of native coronary artery without angina pectoris; I63.9 Cerebral infarction, unspecified; Z68.41 Body mass index [BMI] 40.0-44.9, adult; Z72.0 Tobacco use; Z79.4 Long term (current) use of insulin
CPT/HCPCS: 36415; 80048; 85025

== ENCOUNTER → 2022-08-17 07:49 | Outpatient (CLI) | payer MEDICARE, MEDICAID, SELFPAY ==
--- NOTE | 2022-08-17 07:49 | FL_ITS ---
FINAL REPORT CLINICAL HISTORY: ft 5:24, pt has hernia, pt states he was told he has bleeding but they werent sure where from FINDINGS: UPPER GI WITH SBFT HISTORY: Anemia. PROCEDURE: The patient ingested barium. Effervescent crystals were also administered. Spot and overhead films were obtained. Additional barium was administered for a SBFT. FLUOROSCOPY TIME: 5 minutes 24 seconds. 50 radiographs were obtained. FINDINGS: UGI: The esophagus is normal. There is a small sliding-type hiatal hernia hiatal hernia. There is no gastroesophageal reflux. Peristalsis is normal. The rugal fold pattern of the stomach is normal. There is mucosal thickening of the second portion of the duodenum of uncertain significance. SBFT: The customer program specialist film is normal. There is normal transit time to the colon. There is no evidence of obstruction. The mucosal fold pattern is normal. The terminal ilium is normal. IMPRESSION: Small sliding-type hiatal hernia. Mucosal thickening of the second portion of the duodenum of uncertain significance. Unremarkable small bowel follow-through. Films reviewed , interpreted and dictated by Dr. Jacobs. Transcribed by John Barakat PA-C. Reviewed, Interpreted and Dictated by Chapo Jacobs III, MD Transcribed by DUSTIN Hilton Authenticated and [facility]
== END ==
PROVIDERS: PCP Family Medicine; Visit Provider Surgery
DX: D64.9 Anemia, unspecified (principal)
CPT/HCPCS: 74246; 74248

== ENCOUNTER → 2022-10-20 10:28 | Outpatient (CLI) | payer MEDICARE, MEDICAID, SELFPAY ==
[2022-10-20 11:45] LABS: Basophils # 0.1 K/mm3 (0-0.2); Basophils % 0.6 % (0.1-2.0); Eosinophils # 0.1 K/mm3 (0.0-0.4); Eosinophils % 1.5 % (0.1-12.0); Hematocrit 36.8 % (42.0-52.0); Hemoglobin 10.9 g/dL (14.1-18.0); Lymphocytes % 21.2 % (10-50); Mean Corpuscular HGB Conc 29.6 g/dL (31.8-35.4); Mean Corpuscular Hemoglobin 18.8 pg (27.0-31.2); Mean Corpuscular Volume 63.4 fl (80-94); Mean Platelet Volume 7.6 fl (7.4-10.4); Monocytes # 0.7 K/mm3 (0.1-1.0); Neutrophils # 6.6 K/mm3 (1.8-7.8); Neutrophils % 69.7 % (37.0-80.0); Platelet Count 285 K/mm3 (142-424); Red Blood Count 5.81 M/mm3 (4.60-6.20); Red Cell Distribution Width 21.9 % (11.5-17.5); White Blood Count 9.5 K/mm3 (4.8-10.8)
[2022-10-20 14:41] LABS: Iron 27 ug/dL (49-181)
[2022-10-20 14:52] LABS: Total Iron Binding Capacity 414 ug/dL (261-462)
== END ==
PROVIDERS: PCP Family Medicine; Visit Provider Internal Medicine Medical Oncology
DX: D50.9 Iron deficiency anemia, unspecified (principal)
CPT/HCPCS: 36415; 82728; 83540; 83550; 85025

== ENCOUNTER 2023-01-19 09:26 | Outpatient (CLI) | payer MEDICARE, MEDICAID, SELFPAY ==
[2023-01-19 09:35] VITALS: BMI 40.8
--- NOTE | 2023-01-19 09:35 | PC.NURSE ---
0935-collected labs via peripheral stick with butterfly needle in left ac; pt to d/c to dr. arredondo appointment.
[2023-01-19 09:44] LABS: Basophils # 0.1 K/mm3 (0-0.2); Basophils % 0.7 % (0.1-2.0); Eosinophils # 0.3 K/mm3 (0.0-0.4); Eosinophils % 2.6 % (0.1-12.0); Hematocrit 54.1 % (42.0-52.0); Hemoglobin 17.5 g/dL (14.1-18.0); Lymphocytes # 2.1 K/mm3 (0.7-4.5); Lymphocytes % 20.8 % (10-50); Mean Corpuscular HGB Conc 32.3 g/dL (31.8-35.4); Mean Corpuscular Hemoglobin 26.3 pg (27.0-31.2); Mean Corpuscular Volume 81.4 fl (80-94); Mean Platelet Volume 8.1 fl (7.4-10.4); Monocytes # 0.8 K/mm3 (0.1-1.0); Monocytes % 7.5 % (1.7-9.3); Neutrophils # 6.9 K/mm3 (1.8-7.8); Neutrophils % 68.5 % (37.0-80.0); Platelet Count 207 K/mm3 (142-424); Red Blood Count 6.65 M/mm3 (4.60-6.20); Red Cell Distribution Width 20.1 % (11.5-17.5); White Blood Count 10.1 K/mm3 (4.8-10.8)
[2023-01-19 09:55] LABS: Chloride 105 mmol/L (98-107); Potassium 4.3 mmoL/L (3.5-5.1); Sodium 139 mmol/L (136-145)
[2023-01-19 09:57] LABS: Alanine Aminotransferase 29 U/L (12-78); Aspartate Amino Transferase 49 U/L (17-59); Blood Urea Nitrogen 15 mg/dl (9-20); Creatinine Clearance Estimated 158 mL/min (50-200); Estimated Glomerular Filt Rate 78 ml/min (>60); GFR (African American) 95 ML/MIN (>60)
[2023-01-19 09:58] LABS: Albumin/Globulin Ratio 1.3 (1.1-1.8); Alkaline Phosphatase 107 U/L (38-126); Anion Gap 11.3 mEq/L (5-15); Bilirubin,Total 0.4 mg/dl (0.2-1.3); Calcium 8.7 mg/dl (8.4-10.2); Carbon Dioxide 27 mmol/L (22.0-30.0); Globulin 3.1 g/dL (1.3-3.2); Glucose 145 mg/dl (74-100); Total Protein,Serum 7.1 g/dl (6.3-8.2)
[2023-01-19 10:13] LABS: Iron 49 ug/dL (49-181)
[2023-01-19 10:23] LABS: Total Iron Binding Capacity 359 ug/dL (261-462)
[2023-01-19 10:34] LABS: Ferritin 12.8 ng/ml (17.9-464)
== END 2023-01-19 09:37 | disposition home or self-care (01) ==
PROVIDERS: PCP Family Medicine; Visit Provider Internal Medicine Medical Oncology
DX: D50.9 Iron deficiency anemia, unspecified (principal)
CPT/HCPCS: 36415; 80053; 82728; 83540; 83550; 85025

== ENCOUNTER 2024-02-29 17:53 | Emergency (ER) | payer SELFPAY ==
[2024-02-29 17:55] VITALS: BP 159/117; PULSE 81; RESP 16; TEMP 36.6; O2SAT 96; BMI 40.1
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
[2024-02-29] MEDS: METHOCARBAMOL 500MG TABLET 500 MG PO (18:16)
[2024-02-29] MEDS: ACETAMINOPHEN 500MG TAB 1000 MG PO (18:16)
[2024-02-29 18:30] VITALS: BP 115/79; PULSE 82; O2SAT 97
[2024-02-29 19:03] VITALS: BP 124/73; PULSE 85; RESP 16; TEMP 36.7; O2SAT 94
== END 2024-02-29 19:05 | disposition home or self-care (01) ==
PROVIDERS: Emergency Provider Emergency Medicine; PCP Family Medicine
DX: M79.10 Myalgia, unspecified site (principal); M54.2 Cervicalgia; V89.2XXA Person injured in unspecified motor-vehicle accident, traffic, initial encounter
CPT/HCPCS: 72125; 72128; 72131; 99284

== ENCOUNTER 2024-04-29 15:00 | Outpatient (RCR) | payer OTHER, MEDICARE, SELFPAY | END 2024-04-29 23:59 | disposition home or self-care (01) | LOC: PT 15:00 | PROVIDERS: Visit Provider Family Medicine | DX: M54.2 Cervicalgia (principal); S16.1XXA Strain of muscle, fascia and tendon at neck level, initial encounter | CPT/HCPCS: 97012; 97014; 97035; 97110; 97140; 97163; G0283 ==

== ENCOUNTER 2024-05-23 14:00 | Outpatient (RCR) | payer OTHER, MEDICARE, SELFPAY | END 2024-05-23 23:59 | disposition home or self-care (01) | LOC: PT 14:00 | PROVIDERS: Visit Provider Family Medicine | DX: M54.2 Cervicalgia (principal); S16.1XXD Strain of muscle, fascia and tendon at neck level, subsequent encounter | CPT/HCPCS: 97014; 97035; 97110; 97164; G0283 ==

== ENCOUNTER 2025-01-31 15:49 | Outpatient (CLI) | payer MEDICARE, MEDICAID, SELFPAY ==
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
--- OUTSIDE RECORDS SUMMARY | 2025-01-31 15:51 | XMS_ITS | Clinical Summary ---
Author Organization [facility] Address [address] [place] [address] Care Team Providers Care Cad Developer Name Role Phone Paresh Erwin MD Primary Care Provider + Allergies No known active allergies Medications Aspirin Low Dose 81 MG EC tablet 09/30/19 Active carvedilol (COREG) 12.5 MG tablet Take 1 tablet by mouth 2 (Two) Times a Day With Meals. 04/19/20 22 Active Blood Glucose Monitoring Suppl (Blood Glucose Monitor System) w/Device kitIndications:T ype 2 diabetes mellitus with hyperglycemia, with long-term current use of insulin Use 1 each 3 (Three) Times a Day. 1 each 02/21/20 23 Active spironolactone (ALDACTONE) 25 MG tablet Take 1 tablet by mouth Daily. 02/08/20 24 Active methocarbamol (ROBAXIN) 750 MG tablet Take 1 tablet by mouth. 03/01/20 24 Active HumuLIN 70/30 KwikPen (70-30) 100 UNIT/ML suspension pen-injectorIndi cations:Type 2 diabetes mellitus with hyperglycemia, with long-term current use of insulin INJECT 40 UNITS EVERY MORNING AND 35 UNITS EVERY EVENING 30 mL 3 07/31/19 25 Active Semaglutide, 2 MG/DOSE, (Ozempic, 2 MG/DOSE,) 8 MG/3ML solution pen-injectorIndi cations:Type 2 diabetes mellitus with hyperglycemia, with long-term current use of insulin,Coronary artery disease involving [place] coronary artery of [place] heart without angina pectoris Inject 2 mg under the skin into the appropriate area as directed 1 (One) Time Per Week. 3 mL 11 07/31/19 25 Active pregabalin (LYRICA) 50 MG capsuleIndicatio ns:Type 2 diabetes mellitus with diabetic neuropathy, with long-term current use of insulin TAKE ONE CAPSULE BY MOUTH 2 TIMES A DAY 60 capsule 3 11/08/19 25 Active meloxicam (MOBIC) 15 MG tabletIndication s:Acute neck pain,Strain of neck muscle, subsequent encounter TAKE ONE TABLET BY MOUTH ONCE A DAY 30 tablet 11 11/08/19 25 Active atorvastatin (LIPITOR) 80 MG tabletIndication s:Coronary artery disease involving [place] coronary artery of [place] heart without angina pectoris TAKE ONE TABLET BY MOUTH AT BEDTIME 30 tablet 11/08/19 25 Active metFORMIN (GLUCOPHAGE) 1000 MG tabletIndication s:Type 2 diabetes mellitus with hyperglycemia, with long-term current use of insulin TAKE ONE TABLET BY MOUTH 2 TIMES A DAY WITH MEALS 60 tablet 11/08/19 25 Active losartan (COZAAR) 100 MG tabletIndication s:Essential hypertension TAKE ONE TABLET BY MOUTH ONCE A DAY 30 tablet 11/08/19 25 Active dapagliflozin Propanediol (Farxiga) 10 MG tabletIndication s:Type 2 diabetes mellitus with hyperglycemia, with long-term current use of insulin TAKE ONE TABLET BY MOUTH ONCE A DAY 30 tablet 11/08/19 25 Active tiZANidine (ZANAFLEX) 4 MG tablet TAKE 1 TABLET BY MOUTH EVERY 8 HOURS NEEDED FOR MUSCLE SPASMS 30 tablet 3 11/13/19 25 Active Continuous Glucose Sensor (FreeStyle Neva 3 Plus Sensor)Indicatio ns:Type 2 diabetes mellitus with hyperglycemia, with long-term current use of insulin Use Every 15 (Fifteen) Days. 2 each 11/13/19 25 Active Continuous Glucose Gravel Machine Operator (FreeStyle Neva 3 Tolstoy) deviceIndication s:Type 2 diabetes mellitus with hyperglycemia, with long-term current use of insulin Use 1 each Daily. 1 each 11/13/19 25 Active Embecta Pen Needle Ultrafine 31G X 5 MM misc 12/14/19 25 Active oxyCODONE (ROXICODONE) 10 MG tabletIndication s:Chronic pain syndrome,Lumbar degenerative disc disease Take 1 tablet by mouth every 6 (six) to 8 (eight) hours as needed for Severe Pain. 120 tablet 01/08/20 25 Active oxyCODONE (ROXICODONE) 10 MG tabletIndication s:Chronic pain syndrome,Lumbar degenerative disc disease Take 1 tablet by mouth every 6 (six) to 8 (eight) hours as needed for Severe Pain. 120 tablet 12/13/19 25 025 Discontin ued(Reord er) Active Problems Problem Noted Date Diagnosed Date Microalbuminuria 05/04/2023 Assessment & Plan (05/04/2023 4:19 PM EST): Patient is on appropriate GDMT. Benefit of spironolactone is greater than option of finrenone Umbilical hernia without obstruction and without gangrene 05/04/2023 Lumbar degenerative disc disease 07/21/2022 Assessment & Plan (07/21/2022 10:37 AM EDT): Condition is stable. It is not expected to improve. Patient still responds to Percocet. 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 I do believe patient has a hemoglobinopathy and CBC will be repeated. Hemoglobinopathy is likely related to cigarette use. Patient is now off of iron supplementation. Assessment & Plan (08/07/2023 11:43 AM EDT): Diabetes is stable. Continue current treatment regimen. Diabetes will be reassessed in 6 months Assessment & Plan (05/04/2023 4:18 PM EST): Diabetes is improving with treatment. Medication changes per orders. Diabetes will be reassessed in 3 months. Increase Ozempic to 1 mg weekly. Monitor for hypoglycemia. Assessment & Plan (07/21/2022 10:37 AM EDT): Diabetes is improving with treatment. Continue current treatment regimen. Diabetes will be reassessed in 3 months. A1c may have been falsely lowered by his anemia Essential hypertension 10/18/2021 Assessment & Plan (02/08/2024 11:26 AM EDT): Assessment & Plan (08/07/2023 11:44 AM EDT): Hypertension is stable and controlled Continue current treatment regimen. Blood pressure will be reassessed in 6 months. Assessment & Plan (05/04/2023 4:16 PM EST): Hypertension is improving with treatment. Dietary sodium restriction. Stop smoking. Continue current medications. Blood pressure will be reassessed in 3 months. Assessment & Plan (07/21/2022 10:38 AM EDT): Hypertension is Abdomen. Continue current treatment regimen. Dietary sodium restriction. Weight loss. Blood pressure will be reassessed in 3 months. Coronary artery disease invo lving [place] coronary artery of [place] heart without angina pectoris 10/18/2021 Overview (10/18/2021): ND 08/2021--Stents x3 to Prx RCA, Mid RCA, Mid KCA Assessment & Plan (02/08/2024 11:26 AM EDT): Assessment & Plan (08/07/2023 11:43 AM EDT): Coronary Artery Disease (OPTIONAL): Coronary artery disease is stable. Continue current treatment regimen. Cardiac status will be reassessed in 6 months. Assessment & Plan (05/04/2023 4:16 PM EST): Coronary artery disease is improving with treatment. Medication changes per orders. Cardiac status will be reassessed in 3 months. Increase Ozempic to 1 mg weekly Assessment & Plan (04/21/2022 11:47 AM EST): Patient is asymptomatic. Coronary artery disease also benefits from Farxiga. Patient has follow-up with cardiology in June 2022. 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 Dietary changes recently implemented since ND should assist with weight loss. Consider liraglutide Mood disorder 10/18/2021 Chronic pain syndrome 10/18/2021 Assessment & Plan (08/07/2023 11:43 AM EDT): Condition is stable. Confirmation drug urinalysis ordered today. Continue oxycodone 10 mg every 6 hours as needed Assessment & Plan (04/21/2022 11:46 AM EST): Patient's back pain is essentially unchanged. Due to increase in pain caused by his dental issues and patient's inability to use NSAIDs we will make a temporary change and transition to Percocet 10 mg 1 every 6 hours as needed for pain. Once his dental issues have resolved we will return to his Sharon. Encounters Date Type Department Care Team Description 01/09/2025 Refill [facility] [address] [place] [address] Paresh Erwin MD 01/07/2025 Refill [facility] [address] [place] [address] Paresh Erwin MD Chronic pain syndrome; Lumbar degenerative disc disease 12/17/2024 3:45 PM EDT Office Visit [facility] [address] [place] [address] Paresh Erwin MD Cervical spondylosis (Primary Dx); Cervical disc disease 12/17/2024 Travel 12/10/2024 Refill [facility] [address] [place] [address] Paresh Erwin MD Chronic pain syndrome; Lumbar degenerative disc disease 11/12/2024 Telephone [facility] [address] [place] [address] Paresh Erwin MD ORDERS FOR NEW GLUCOMETER 11/11/2024 Refill [facility] [address] [place] [address] Paresh Erwin MD Chronic pain syndrome; Lumbar degenerative disc disease 11/07/2024 [facility] [address] [place] [address] Paresh Erwin MD Type 2 diabetes mellitus with diabetic neuropathy, with long-term current use of insulin; Acute neck pain; Strain of neck muscle, subsequent encounter; Coronary artery disease involving [place] coronary artery of [place] heart without angina pectoris; Type 2 diabetes mellitus with hyperglycemia, with long-term current use of insulin; Essential hypertension from Last 3 Months Immunizations Immunization Administration Dates Next Due Pneumococcal Polysaccharide (PPSV23) 11/21/2016 Family History Medical History Relation Name Comments Cancer Father Mahamed Santillan Diabetes Father Mahamed Santillan Heart attack Father Mahamed Santillan Heart disease Father Mahamed Santillan Obesity Father Mahamed Santillan No Known Problems Mother Relation Name Status Comments Father Mahamed Santillan Alive Mother Social History Tobacco Use Types Packs/Day Years [...] Orientation Straight 03/04/2024 12 :56 PM EST Last Filed Vital Signs Vital Sign Reading [...] Mass Index 40.11 12/17/2024 3:41 PM EDT Plan of Treatment Upcoming Encounters Date Type Department Care Team (Late st Contact Info) Description 02/10/2025 10:15 AM EDT Office Visit [facility] [address] [place] [address] Paresh Erwin MD [address] [place] [address] Health Maintenance Due Date Last Done Comments DIABETIC FOOT EXAM 1981 Hepatitis B (1 of 3 - 19+ 3- dose series) 1990 TDAP/TD VACCINES (1 - Tdap) 1990 COLOGUARD 01/14/2016 COLON CANCER SCREENING 5 YEA R SIGMOIDOSCOPY 01/14/2016 CT COLONOGRAPHY 01/14/2016 FECAL OCCULT BLOOD TEST 01/14/2016 FIT Testing (1 year) 01/14/2016 Pneumococcal Vaccine 50+ (2 of 2 - PCV) 11/21/2017 11/21/2016 ZOSTER VACCINE (1 of 2) 2021 HEPATITIS C SCREENING 10/18/2021 DIABETIC EYE EXAM 03/09/2024 03/09/2023, 12/02/2021 INFLUENZA VACCINE 11/29/2024 HEMOGLOBIN A1C 01/29/2025 07/30/2024, 01/29, 08/07/2023, Additional history exists ANNUAL WELLNESS VISIT 02/07/2025 02/08/2024 , 02/08/2024, 01/30/2023 URINE MICROALBUMIN-CREATININ E RATIO (uACR) 07/30/2025 07/30/2024 COLONOSCOPY 06/24/2032 06/24/2022 COLORECTAL CANCER SCREENING 06/24/2032 Procedures Procedure Name Priority Date/Time Associated Diagnosis Comments HEMOGLOBIN A1C Routine 07/30/2024 11:34 AM EDT Type 2 diabetes mellitus with hyperglycemia, with long-term current use of insulin POC ALBUMIN/CREATININE RATIO Routine 07/30/2024 11:27 AM EDT Type 2 diabetes mellitus with hyperglycemia, with long-term current use of insulin SCANNED - EYE EXAM 03/09/2023 SCANNED - COLONOSCOPY 06/24/2022 from Last 3 Months or Most Recently Relevant to Health Maintenance Results * (ABNORMAL) Hemoglobin A1c (07/30/2024 11:34 AM EDT) Hemoglobin A1C 6.2(H) 4.8 - 5.6 % [facility] Comment: Prediabetes: 5.7 - 6.4 Diabetes: >6.4 Glycemic control for adults with diabetes: <7.0 Blood 07/30/2024 11:3 4 AM EDT 07/30/2024 Narrative [facility] (AMBULATORY) - 07/31/2024 6:09 AM EDT Performed at: - [facility] [id number] Pesticide Use Medical Coordinator: Jeremy Franklin PhD, Phone: [phone] Patient Fasting: Y Paresh Erwin MD LAB BLOOD ORDERABLES Fin al Result [facility] [address] [id number], [facility] [address] [place] [address], * (ABNORMAL) POC Albumin/Creatinine Ratio Urine (07/30/2024 11:27 AM EDT) POC ALBUMIN, URINE 150 mg/L POC CREATININE, URINE 200 mg/dL POC Urine Albumin Creatinine Ratio 30-300 <30 mg/g Lot Number [id number] Expiration Date 05/31/2025 Urine 07/30/2024 11:2 7 AM EDT Paresh Erwin MD POINT OF CARE TEST ORDER EVANGELINA Final Result * SCANNED - EYE EXAM (03/09/2023) Anatomical Region Laterality Modality Other Paresh Erwin MD CHART REVIEW TABS Fin al Result * SCANNED - COLONOSCOPY (06/24/2022) Paresh Erwin MD CHART REVIEW TABS Fin al Result from Last 3 Months or Most Recently Relevant to Health Maintenance Insurance [facility] MEDICARE [facility]AGE [facility] HMO Care Teams Cad Developer Relationship Specialty Start Date End Date Paresh Erwin [facility] [place] [address] PCP - General Family Medicine 10/18/21
--- OUTSIDE RECORDS SUMMARY | 2025-01-31 15:51 | XMS_ITS | Encounter Summary ---
Author Organization [facility] Address [address] [id number] Care Team Providers Care Research Worker Encyclopedia Name Role Phone Paresh Erwin MD Primary Care Provider + Reason for Visit * Reason Onset Date Comments Med Refill 01/07/2025 Encounter Details Date Type Department Care Team (Late st Contact Info) Description 01/07/2025 Refill [facility] [address] [place] [address] Paresh Erwin MD [address] [place] [address] Chronic pain syndrome; Lumbar degenerative disc disease Social History Tobacco Use Types Packs/Day Years Used Date Smoking Tobacco: Some Days Cigarettes 0.5 3.4 Started: 07/18/2021; Last attempted to quit: 03/02/2024 Smokeless Tobacco: Never Alcohol Use Standard Drinks/Week Comments Not Currently [...] PM EST documented as of this encounter Miscellaneous Notes * Telephone Encounter - Laura Smith RegSched Rep - 01/07/2025 10:10 AM EDT Caller: Jacque Augustine T Relationship: Self Best call back number: [phone] Requested Prescriptions: Requested Prescriptions Pending Prescriptions Disp Refills oxyCODONE (ROXICODONE) 10 MG tablet 120 tablet 0 Sig: Take 1 tablet by mouth every 6 (six) to 8 (eight) hours as needed for Severe Pain. Pharmacy where request should be sent: [facility] - [place] [address] S - [phone] [facility] [phone] FX Last office visit with prescribing clinician: 12/17/2024 Last telemedicine visit with prescribing clinician: Visit date not found Next office visit with prescribing clinician: 02/10/2025 Additional details provided by patient: Does the patient have less than a 3 day supply: [x] Yes [] No Would you like a call back once the refill request has been completed: [] Yes [x] No If the office needs to give you a call back, can they leave a voicemail: [] Yes [x] No Daniel Forbes 01/07/25 10:10 EDT documented in this encounter Plan of Treatment Upcoming Encounters Date Type Department Care Team (Late st Contact Info) Description 02/10/2025 10:15 AM EDT Office Visit [facility] [address] [facility] [place] [id number] Paresh Erwin MD [address] [place] [address] documented as of this encounter Visit Diagnoses Diagnosis Chronic pain syndrome Lumbar degenerative disc disease documented in this encounter Care Teams Research Worker Encyclopedia Relationship Specialty Start Date End Date Paresh Erwin MD [address] [place] [address] PCP - General Family Medicine 10/18/21 documented as of this encounter
--- OUTSIDE RECORDS SUMMARY | 2025-01-31 15:51 | XMS_ITS | Clinical Summary ---
Author Organization [facility] Address [address] [id number] Care Team Providers Care Wet Finisher Name Role Phone Stefan Felder MD Primary Care Provider [phone] Allergies No known active allergies Medications atorvastatin (Lipitor) 80 MG tablet Take 1 tablet (80 mg) by mouth 1 (one) time each day. 02/08/2024 Active carvedilol (Coreg) 12.5 MG tablet 03/07/2024 Active dapagliflozin (Farxiga) 10 MG tablet Take 1 tablet (10 mg) by mouth 1 (one) time each day. 02/08/2024 Active HumuLIN 70/30 KWIKPEN (70-30) 100 UNIT/ML injection pen INJECT 45 UNITS EVERY MORNING AND 40 UNITS EVERY EVENING 02/08/2024 Active losartan (Cozaar) 100 MG tablet Take 1 tablet (100 mg) by mouth 1 (one) time each day. 02/08/2024 Active metFORMIN (Glucophage) 1000 MG tablet Take 1 tablet (1,000 mg) by mouth 2 (two) times a day with meals. 10/29/2018 Active oxyCODONE (Roxicodone) 10 MG immediate release tablet Take 1 tablet (10 mg) by mouth every 6 (six) hours if needed. 03/05/2024 Active pregabalin (Lyrica) 50 MG capsule Take 1 capsule (50 mg) by mouth twice a day. 02/08/2024 Active Ozempic, 1 MG/DOSE, 4 MG/3ML solution pen-injector Inject 1 mg under the skin every 7 (seven) days. 02/08/2024 Active spironolactone (Aldactone) 25 MG tablet Take 1 tablet (25 mg) by mouth 1 (one) time each day. 02/08/2024 Active tiZANidine (Zanaflex) 4 MG tablet 03/08/2024 Active Active Problems Problem Noted Date Diagnosed Date Umbilical hernia without obstruction and without gangrene 03/19/2024 Morbid obesity with BMI of 40.0-44.9, adult 03/01 Diabetes 1.5, managed as type 2 03/19/2024 Coronary artery disease invo lving lime coronary artery of lime heart without angina pectoris 03/19/2024 Family History Medical History Relation Name Comments Cardiac disorder Father Kidney cancer Father Diabetes Mother Relation Name Status Comments Father Mother Social History Tobacco Use Types Packs/Day Years Used Date Smoking Tobacco: Former Cigarettes Passive Smoke Exposure: Never Smokeless Tobacco: Never Tobacco Cessation:Counseling Given: Not Answered Alcohol Use Standard Drinks/Week Comments Never 0 (1 standard drink = 0.6 oz pur e alcohol) PHQ-2 Answer Date Recorded Patient Health Questionnaire-2 Score 0 03/19/2024 PHQ-9 Answer Date Recorded Patient Health Questionnaire-9 Score 0 03/19/2024 Sex and Gender Information Value Date Recorded Sex Assigned at Not on file Legal Sex Male 6:25 PM EDT Gender Identity Not on file Sexual Orientation Not on file Last Filed Vital Signs Vital Sign Reading Time Taken Comments Blood Pressure 125/88 03/19/2024 2:07 PM EST Pulse 89 03/19/2024 2:07 PM EST Temperature 36.6 C (97.8 F) 03/19/2024 2:07 PM EST Respiratory Rate 16 03/19/2024 2:07 PM EST Oxygen Saturation 97% 03/19/2024 2:07 PM EST Inhaled Oxygen Concentration - - Weight 129 kg (284 lb 4.8 oz) 03/19/2024 2:07 PM EST Height 179.1 cm (5' 10.5 ) 03/19/2024 2:07 PM ES T Body Mass Index 40.22 03/19/2024 2:07 PM EST Plan of Treatment Health Maintenance Due Date Last Done Comments [facility]-HIV Screening 1971 [facility]-Hepatitis C Screening 1971 [facility]-Infant/Child/Adol SDOH Screenings 1971 [facility]- SDOH Screenings 1989 [facility]-Adult SDOH Screenings 1989 [facility]-DTaP,Tdap,and Td Vaccines (1 - Tdap) 1990 [facility]-Hepatitis B Vaccines (1 of 3 - 19+ 3-dose series) 1990 CT Colonography 01/14/2016 Colonoscopy 01/14/2016 FIT-DNA 01/14/2016 FIT 01/14/2016 FOBT 01/14/2016 Sigmoidoscopy 01/14/2016 [facility]-Colorectal Cancer Screening 01/14/2016 [facility]-Pneumococcal Vaccine: 50+ Years (2 of 2 - PCV) 11/21/2017 11/21/2016 [facility]-Zoster Vaccines (1 of 2) 2021 [facility]-Medicare Annual Wellness (AWV) 01/31/2024 01/30/2023 [id number] Vaccine (2023- season) 2024 [facility]-Influenza Vaccine (#1) 2024 [facility]-Depression Screening 03/19/2025 03/19/2024, 03/01 [facility]-Diabetes: Hemoglobin A1C Discontinued 02/08/2024, 08/07/2023, 05/04/2023, Additional history exists [facility]-Obesity Intervention Completed 03/19/2024 HPV Vaccines Aged Out No longer eligi ble based on patient's age to complete this topic [facility]-HIB Vaccines Aged Out No longer e ligible based on patient's age to complete this topic [facility]-Hepatitis A Vaccines Aged Out No longer eligible based on patient's age to complete this topic [facility]-IPV Vaccines Aged Out No longer e ligible based on patient's age to complete this topic [facility]-Rotavirus Vaccines Aged Out No lo nger eligible based on patient's age to complete this topic Insurance [id number] [facility] [address] [id number] [facility] MEDICARE Care Teams Wet Finisher Relationship Specialty Start Date End Date Stefan Felder MD [address] [phone] PCP - General 09/11/20
--- OUTSIDE RECORDS SUMMARY | 2025-01-31 15:51 | XMS_ITS | Encounter Summary ---
[facility] Address [address] [place] [address] Care Team Providers Care Mini Bar Attendant Name Role Phone Paresh Erwin MD Primary Care Provider + Reason for Visit * Reason Comments Med Refill Encounter Details Date Type Department Care Team (Late st Contact Info) Description 09/12/2024 Refill [facility] [address] [place] [address] Paresh Erwin MD [address] [place] [address] Chronic pain syndrome; Lumbar degenerative disc disease [...] 01/30/2023 PHQ-2 Answer Date Recorded Patient Health Questionnaire-2 Score 0 08/13/2024 Sex and Gender Information Value Date Recorded Sex Assigned at Male 03/04/2024 12:56 PM EST Legal Sex Male 1:42 PM EDT Gender Identity Male 03/04/2024 12:56 PM EST Sexual Orientation Straight 03/04/2024 12 :56 PM EST documented as of this encounter Plan of Treatment Upcoming Encounters Date Type Department Care Team (Late st Contact Info) Description 02/10/2025 10:15 AM EDT Office Visit [facility] [address] [place] [address] Paresh Erwin MD [address] [place] [address] documented as of this encounter Visit Diagnoses Diagnosis Chronic pain syndrome Lumbar degenerative disc disease documented in this encounter Care Teams Mini Bar Attendant Relationship Specialty Start Date End Date Paresh Erwin MD [address] [place] [address] PCP - General Family Medicine 10/18/21 documented as of this encounter
--- OUTSIDE RECORDS SUMMARY | 2025-01-31 15:51 | XMS_ITS | Encounter Summary ---
[facility] Organization [facility] Address [address] [place] [address] Care Team Providers Care Silver Solution Mixer Name Role Phone Paresh Erwin MD Primary Care Provider + Encounter Details Date Type Department Care Team (Late st Contact Info) Description 07/31/2024 Results Follow-Up [facility] [address] [facility] [place] [address] Paresh Erwin MD [address] [facility] [place] [address] Social History Tobacco Use Types Packs/Day Years Used Date Smoking Tobacco: Some Days Cigarettes 0.5 3.4 Started: 07/18/2021; Last attempted to quit: 03/02/2024 Smokeless Tobacco: Never Alcohol Use Standard Drinks/Week Comments Not Currently 0 (1 standard drink = 0.6 oz pur e alcohol) PHQ-2 Answer Date Recorded Retired PHQ-9: Brief Depression Severity Measure Score 0 01/30/2023 PHQ-2 Answer Date Recorded Retired PHQ-9: Brief Depression Severity Measure Score 0 02/08/2024 Sex and Gender Information Value Date Recorded Sex Assigned at Male 03/04/2024 12:56 PM EST Legal Sex Male 1:42 PM EDT Gender Identity Male 03/04/2024 12:56 PM EST Sexual Orientation Straight 03/04/2024 12 :56 PM EST documented as of this encounter Plan of Treatment Upcoming Encounters Date Type Department Care Team (Late st Contact Info) Description 02/10/2025 10:15 AM EDT Office Visit [facility] [address] [facility] [place] [address] Paresh Erwin MD [address] [place] [address] documented as of this encounter Visit Diagnoses Not on filedocumented in this encounter Care Teams Silver Solution Mixer Relationship Specialty Start Date End Date Paresh Erwin MD [address] [place] [address] PCP - General Family Medicine 10/18/21 documented as of this encounter
--- OUTSIDE RECORDS SUMMARY | 2025-01-31 15:51 | XMS_ITS | Encounter Summary ---
[facility] Address [address] [place] [address] Care Team Providers Care Greige Goods Examiner Name Role Phone Paresh Erwin MD Primary Care Provider + Reason for Visit * Reason Comments Med Refill Encounter Details Date Type Department Care Team (Late st Contact Info) Description 01/09/2025 Refill [facility] [address] [place] [address] Paresh Erwin MD [address] [place] [address] Social History Tobacco Use Types Packs/Day Years [...] Description 02/10/2025 10:15 AM EDT Office Visit [facility] [address] [place] [address] Paresh Erwin MD [address] [place] [address] documented as of this encounter Visit Diagnoses Not on filedocumented in this encounter Care Teams Greige Goods Examiner Relationship Specialty Start Date End Date Paresh Erwin MD [address] [place] [address] PCP - General Family Medicine 10/18/21 documented as of this encounter
--- OUTSIDE RECORDS SUMMARY | 2025-01-31 15:51 | XMS_ITS | Clinical Summary ---
Author Organization [facility] Address [address] [place] [address] Phone Care Team Providers Care Russian History Professor Name Role Phone Nonstaff, Referring Primary Care Provider Unavai lable Allergies No known active allergies Medications LISINOPRIL ORAL Take by mouth. Active METFORMIN HCL (METFORMIN ORAL) Take by mouth. Active DICLOFENAC SODIUM (VOLTAREN ORAL) Take by mouth. Active AMITRIPTYLINE HCL (AMITRIPTYLINE ORAL) Take by mouth. 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) Social History Tobacco Use Types Packs/Day Years Used Date Smoking Tobacco: Former Smokeless Tobacco: Never Alcohol Use Standard Drinks/Week Comments No 0 (1 standard drink = 0.6 oz pur e alcohol) Sex and Gender Information Value Date Recorded Sex Assigned at Not on file Legal Sex Male 3:22 AM EDT Gender Identity Not on file Sexual Orientation Not on file Last Filed Vital Signs Vital Sign Reading Time Taken Comments Blood Pressure 144/81 11/21/2011 6:16 PM EDT Pulse 74 11/21/2011 6:16 PM EDT Temperature 36.9 C (98.4 F) 11/21/2011 6:16 PM EDT Respiratory Rate 18 11/21/2011 6:16 PM EDT Oxygen Saturation 96% 11/21/2011 6:16 PM EDT Inhaled Oxygen Concentration - - Weight 142.9 kg (315 lb) 11/21/2011 6:16 PM EDT Height 177.8 cm (5' 10 ) 11/21/2011 6:16 PM EDT Body Mass Index 45.2 11/21/2011 6:16 PM EDT Plan of Treatment Health Maintenance Due Date Last Done Comments Annual Wellness Exam 1974 DTaP/TDaP/Td (1 - Tdap) 1990 Hepatitis B Vaccine (1 of 3 - 19+ 3-dose series) 1990 Cologuard 01/14/2016 Colon Cancer Screening 01/14/2016 Colonoscopy 01/14/2016 FIT 01/14/2016 Sigmoidoscopy 01/14/2016 Virtual Colonography 01/14/2016 Pneumococcal Vaccine 50+ (1 of 1 - PCV) 2021 Zoster (1 of 2) 2021 COVID-19 Vaccine (1 - 2023-2 5 season) 2024 Influenza Vaccine (#1) 2024 Meningococcal B Vaccine Aged Out No l onger eligible based on patient's age to complete this topic Care Teams Russian History Professor Relationship Specialty Start Date End Date Nonstaff, Referring PCP - General 11/21/11
--- OUTSIDE RECORDS SUMMARY | 2025-01-31 15:51 | XMS_ITS | Encounter Summary ---
[facility] Address [address] [place] [address] Care Team Providers Care Mortgage Or Loan Underwriter Name Role Phone Paresh Erwin MD Primary Care Provider + Encounter Details Date Type Department Care Team (Late Contact Info) Description 08/20/2024 Results Follow-Up [facility] [address] [place] [address] Paresh Erwin MD [address] [facility] [place] [address] Social History Tobacco Use Types [...] Description 02/10/2025 10:15 AM EDT Office Visit [facility] [address] [facility] [place] [address] Paresh Erwin MD [address] [place] [address] documented as of this encounter Visit Diagnoses Not on filedocumented in this encounter Care Teams Mortgage Or Loan Underwriter Relationship Specialty Start Date End Date Paresh Erwin MD [address] [place] [address] PCP - General Family Medicine 10/18/21 documented as of this encounter
--- OUTSIDE RECORDS SUMMARY | 2025-01-31 15:51 | XMS_ITS | Encounter Summary ---
[facility] Address [address] [place] [address] Care Team Providers Care Lacquer Spray Booth Operator Name Role Phone Paresh Erwin MD Primary Care Provider + Reason for Visit * Reason Onset Date Comments Med Refill 12/10/2024 Encounter Details Date Type Department Care Team (Late st Contact Info) Description 12/10/2024 Refill [facility] [address] [place] [address] Paresh Erwin MD [address] [place] [address] Chronic pain syndrome; Lumbar degenerative [...] encounter Miscellaneous Notes * Telephone Encounter - Berta Palomo RegSched Rep - 12/10/2024 2:11 PM EDT Caller: Darlyn Santillany Dustin Relationship: Self Best call back number: [phone] Requested Prescriptions: Requested Prescriptions Pending Prescriptions Disp Refills oxyCODONE (ROXICODONE) 10 MG tablet 120 tablet 0 Sig: Take 1 tablet by mouth every 6 (six) to 8 (eight) hours as needed for Severe Pain. Pharmacy where request should be sent: [facility] - [place] [address] [address] [phone] [facility] [phone] FX Last office visit with prescribing clinician: 08/13/2024 Last telemedicine visit with prescribing clinician: Visit date not found Next office visit with prescribing clinician: 12/17/2024 Additional details provided by patient: PATIENT HAS 3 DAYS LEFT. Does the patient have less than a 3 day supply: [] Yes [x] No Would you like a call back once the refill request has been completed: [] Yes [x] No If the office needs to give you a call back, can they leave a voicemail: [] Yes [x] No Daniel Reyes Rep 12/10/24 14:11 EDT documented in this encounter Plan of Treatment Upcoming Encounters Date Type Department Care Team (Late st Contact Info) Description 02/10/2025 10:15 AM EDT Office Visit [facility] [address] [facility] [place] [address] Paresh Erwin MD [address] [place] [address] documented as of this encounter Visit Diagnoses Diagnosis Chronic pain syndrome Lumbar degenerative disc disease documented in this encounter Care Teams Lacquer Spray Booth Operator Relationship Specialty Start Date End Date Paresh Erwin MD [address] [place] [address] PCP - General Family Medicine 10/18/21 documented as of this encounter
--- OUTSIDE RECORDS SUMMARY | 2025-01-31 15:51 | XMS_ITS | Encounter Summary ---
Author Organization [facility] Address [address] [place] [address] Care Team Providers Care Rn House Supervisor Name Role Phone Paresh Erwin MD Primary Care Provider + Encounter Details Date Type Department Care Team (Latest Contact Info) Description 12/17/2024 Travel Social History Tobacco Use Types Packs/Day Years [...] PM EST documented as of this encounter Functional Status * Over the [...] 12/17/2024 1:48 PM EDT Mychart, Generic * Trouble concentrating on things, such as reading the newspaper or watching television Answer Date of Assessment Author Not at all 12/17/2024 1:48 PM EDT Mychart, Generic * Moving or speaking so slowly that other people could have noticed? Or the opposite - being so fidgety or restless that you have been moving around a lot more than usual. Answer Date of Assessment Author Not at all 12/17/2024 1:48 PM EDT Mychart, Generic * Thoughts that you would be better off or hurting yourself in some way Answer Date of Assessment Author Not at all 12/17/2024 1:48 PM EDT Mychart, Generic * How difficult have these problems made it for you to do your work, take care of things at home, or get along with other people? Answer Date of Assessment Author Not difficult at all 12/17/2024 1:48 PM EDT Mych art, Generic documented as of this encounter Plan of Treatment Upcoming Encounters Date Type Department Care Team (Late st Contact Info) Description 02/10/2025 10:15 AM EDT Office Visit [facility] [address] [place] [place] [address] Paresh Erwin MD [address] [place] [address] documented as of this encounter Visit Diagnoses Not on filedocumented in this encounter Care Teams Rn House Supervisor Relationship Specialty Start Date End Date Paresh Erwin MD [address] [place] [address] PCP - General Family Medicine 10/18/21 documented as of this encounter
--- OUTSIDE RECORDS SUMMARY | 2025-01-31 15:51 | XMS_ITS | Encounter Summary ---
Author Organization [facility] Address [address] [id number] Care Team Providers Care Trimming Cutter Name Role Phone Paresh Erwin MD Primary Care Provider + Reason for Visit * Reason Onset Date Comments Med Refill 10/19/2023 Encounter Details Date Type Department Care Team (Late st Contact Info) Description 10/19/2023 Refill [facility] [address] [place] [address] Paresh Erwin MD [address] [place] [address] Chronic pain syndrome; Lumbar degenerative disc disease Social History Tobacco Use Types Packs/Day Years Used Date Smoking Tobacco: Former Cigarettes 0.5 1 0 07/18/2021 - 09/26/2021 Smokeless Tobacco: Never Alcohol Use Standard Drinks/Week Comments Not Currently 0 (1 standard drink = 0.6 oz pur e alcohol) PHQ-2 Answer Date Recorded Retired PHQ-9: Brief Depression Severity Measure Score 0 01/30/2023 PHQ-2 Answer Date Recorded Retired PHQ-9: Brief Depression Severity Measure Score 0 08/07/2023 Sex and Gender Information Value Date Recorded Sex Assigned at Male 03/04/2024 12:56 PM EST Legal Sex Male 1:42 PM EDT Gender Identity Male 03/04/2024 12:56 PM EST Sexual Orientation Straight 03/04/2024 12 :56 PM EST documented as of this encounter Miscellaneous Notes * Telephone Encounter - Cathy Mcguire RegSched Rep - 10/20/2023 9:30 AM EDT Caller: Augustine Santillan Relationship to patient: Self Best call back number: [phone] Patient is needing: PATIENT IS CALLING TO SEE IF THIS WILL BE SENT IN TODAY. * Telephone Encounter - Thalia Espinoza RegSched Rep - 10/19/2023 9:03 AM EDT Caller: Augustine Santillan Relationship: Self Best call back number: [phone] Requested Prescriptions: Requested Prescriptions Pending Prescriptions Disp Refills oxyCODONE (ROXICODONE) 10 MG tablet 120 each 0 Sig: Take 1 tablet by mouth Every 6 (Six) Hours As Needed for Moderate Pain. Pharmacy where request should be sent: [facility] - [address] - [phone] - [phone] FX Last office visit with prescribing clinician: 08/07/2023 Last telemedicine visit with prescribing clinician: Visit date not found Next office visit with prescribing clinician: 02/08/2024 Additional details provided by patient: PATIENT HAS ONE DAY LEFT. Does the patient have less than a 3 day supply: [x] Yes [] No Would you like a call back once the refill request has been completed: [] Yes [x] No If the office needs to give you a call back, can they leave a voicemail: [] Yes [x] No Daniel Carver 10/19/23 09:04 EDT documented in this encounter Plan of Treatment Upcoming Encounters Date Type Department Care Team (Late st Contact Info) Description 02/10/2025 10:15 AM EDT Office Visit [facility] [address] [facility] [place] [address] Paresh Erwin MD [address] [address] documented as of this encounter Visit Diagnoses Diagnosis Chronic pain syndrome Lumbar degenerative disc disease documented in this encounter Care Teams Trimming Cutter Relationship Specialty Start Date End Date Paresh Erwin MD [address] [place] [address] PCP - General Family Medicine 10/18/21 documented as of this encounter
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
== END 2025-01-31 23:59 | disposition home or self-care (01) ==
LOC: RAD 15:49
PROVIDERS: PCP Family Medicine; Visit Provider Internal Medicine Cardiovascular Disease
DX: M47.816 Spondylosis without myelopathy or radiculopathy, lumbar region (principal); M47.814 Spondylosis without myelopathy or radiculopathy, thoracic region; M51.369 Other intervertebral disc degeneration, lumbar region without mention of lumbar back pain or lower extremity pain; M48.061 Spinal stenosis, lumbar region without neurogenic claudication; M51.06 Intervertebral disc disorders with myelopathy, lumbar region; M48.04 Spinal stenosis, thoracic region; M99.73 Connective tissue and disc stenosis of intervertebral foramina of lumbar region; M99.72 Connective tissue and disc stenosis of intervertebral foramina of thoracic region; N28.1 Cyst of kidney, acquired
CPT/HCPCS: 72148